=== PATIENT | male | born 1960 | race Caucasian/White ===

== ENCOUNTER 2020-04-10 21:59 | Inpatient (IN) | payer MEDICARE ==
[2020-04-10] MEDS ORDERED: ASPIRIN 325 MG TAB PO ONE (22:31)
--- NOTE | 2020-04-10 23:16 | XRay Report ---
CHEST 2 VIEWS INDICATION: Chest Pain. COMPARISON: None FINDINGS: SUPPORT DEVICES: Left-sided vascular catheter with tip in the SVC. HEART: Within normal limits. LUNGS/PLEURA: No acute air space or interstitial disease. No pneumothorax. ADDITIONAL FINDINGS: None. IMPRESSION: 1. No acute findings. Signer Name: Darshan Lee MD Signed: 04/10/2020 11:12 PM Workstation Name: [id number]
[2020-04-10 23:32] LABS: Calcium 8.8 mg/dL (8.4-10.2)
[2020-04-10 23:55] LABS: Hemoglobin 9.3 gm/dl (11.8-15.2); Mean Corpuscular HGB Conc 33 % (32-34); Mean Corpuscular Volume 91 fl (84-94); Red Blood Count 3.08 M/mm3 (3.65-5.03); Red Cell Distribution Width 19.2 % (13.2-15.2)
[2020-04-10 23:59] LABS: Platelet Count 101 K/mm3 (140-440)
[2020-04-11 04:25] LABS: Chol/HDL Ratio 5.39 %
[2020-04-11] MEDS ORDERED: ALBUTEROL 2.5 MG/3 ML NEBU IH ONE ×2 (05:16→08:32)
[2020-04-11] MEDS ORDERED: INSULIN REGULAR, HUMAN 100 UNIT/ML 3ML VIAL IV ONE (05:16)
[2020-04-11] MEDS ORDERED: SODIUM BICARB 8.4% 50 MEQ/50 ML SYRINGE IV ONE ×2 (05:16→07:42)
[2020-04-11] MEDS ORDERED: DEXTROSE 50% IN WATER (25GM) 50 ML SYRINGE IV ONE (05:16)
[2020-04-11] MEDS ORDERED: SODIUM POLYSTYRENE 15 GM/60 ML ORAL LIQD PO ONE (05:16)
[2020-04-11] MEDS ORDERED: CALCIUM GLUCONATE 1,000 MG in SODIUM CHLORIDE 0.9% 100 ML IV ONE (05:16)
--- NOTE | 2020-04-11 05:17 | Event Note ---
Date: 04/11/20 The patient was evaluated in the emergency department for symptoms described in the history of present illness. He/she was evaluated in the context of the global COVID-19 pandemic, which necessitated consideration that the patient might be at risk for infection with the virus that causes COVID-19. Institutional protocols and algorithms that pertain to the evaluation of patients at risk for COVID-19 are in a state of rapid change based on information released by regulatory bodies including the CDC and federal and state organizations. These policies and algorithms were followed during the patient's care in the emergency department. Please note that these policies, procedures and recommendations changed on a rapid basis. Medical screening examination: 60-year-old gentleman, with a history of end- stage renal disease on hemodialysis, who recently came here from [facility]. 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 He believes that he received dialysis yesterday, at [facility]. He presents to the ER with a complaint of syncope, chest pain, and left side pain. He has a nonfocal motor exam, is breathing spontaneously, and protecting his airway. Obtain appropriate laboratory studies, x-ray of the chest, EKG, noncontrast CT scan of the brain, and reassess. Vital Signs 04/10/20 22:14 Temperature 97.4 F L Pulse Rate 76 Respiratory 18 Rate Blood Pressure 119/53 O2 Sat by Pulse 100 Oximetry Lab Results 04/10/20 04/10/20 04/11/20 Range/Units 22:48 22:48 01:44 WBC 9.0 (4.5-11.0) K/mm3 RBC 3.08 L (3.65-5.03) M/mm3 Hgb 9.3 L (11.8-15.2) gm/dl Hct 28.0 L (35.5-45.6) % MCV 91 (84-94) fl MCH 30 (28-32) pg MCHC 33 (32-34) % RDW 19.2 H (13.2-15.2) % Plt Count 101 L (140-440) K/mm3 Lymph % (Auto) Thermal Cutting Machine Operator Lymph # (Auto) Thermal Cutting Machine Operator Sodium 135 L (137-145) mmol/L Potassium 5.6 H (3.6-5.0) mmol/L Chloride 96.9 L (98-107) mmol/L Carbon Dioxide 24 (22-30) mmol/L Anion Gap 20 mmol/L BUN 49 H (9-20) mg/dL Creatinine 7.3 H (0.8-1.3) mg/dL Estimated GFR 8 ml/min BUN/Creatinine Ratio 7 % Glucose 91 (75-100) mg/dL Calcium 8.8 (8.4-10.2) mg/dL Troponin T 0.152 H* 0.127 H* (0.00-0.029) ng/mL Triglycerides 260 H (2-149) mg/dL Cholesterol 151 (50-199) mg/dL LDL Cholesterol Direct 90 (50-130) mg/dL HDL Cholesterol 28 L (40-59) mg/dL Cholesterol/HDL Ratio 5.39 %
[2020-04-11 06:10] LABS: Total Cells Counted 100
[2020-04-11 06:11] LABS: Anisocytosis 1+
[2020-04-11 06:12] LABS: Macrocytosis Few; Ovalocytes Few; Platelet Estimate Consistent w Auto
--- NOTE | 2020-04-11 06:23 | Cat Scan Report ---
CT head without contrast INDICATION : Syncope, closed head injury. TECHNIQUE: Axial imaging performed from the skull apex through the skull base without the use of con trast. All CT scans at this location are performed using CT dose reduction for ALARA by means of aut omated exposure control. COMPARISON: None FINDINGS: Parenchyma: No acute intracranial hemorrhage or parenchymal abnormality. Ventricles: Ventricles are normal in size and appear symmetric. Soft tissues: Soft tissues including the orbits appear normal. Bones: No acute osseous abnormality. Sinuses: Sinuses and mastoid air cells are clear. IMPRESSION: No acute abnormality. Signer Name: Darshan Lee MD Signed: 04/11/2020 6:18 AM Workstation Name: [id number]
[2020-04-11] MEDS ORDERED: INSULIN REGULAR, HUMAN 100 UNITS/1 ML ONE (06:30)
[2020-04-11] MEDS ORDERED: fentaNYL 100 MCG/2 ML INJ IV ONE (06:36)
[2020-04-11] MEDS ORDERED: ONDANSETRON 4 MG/2 ML INJ IV ONE (06:36)
--- NOTE | 2020-04-11 06:41 | Emergency Department Report ---
HPI - General Chief Complaint: Chest Pain PUI?: No Time Seen by Provider: 04/11/20 06:24 - [facility] HPI: Room 9 The patient is a 60-year-old male present with a chief complaint of chest pain and suicidal ideation. The patient states for the past 3 days he has had a constant substernal chest pain associated with shortness of breath nausea and diaphoresis. Patient denies vomiting. Patient states last night after standing up he lost consciousness and now has pain in his left hip since his fall. Patient states his last stress test occurred approximate 3 months ago and was within normal limits. Patient states he is never had a cardiac catheterization. Patient has history of end-stage renal disease and states he was last dialyzed yesterday. Patient also states he has felt suicidal for 1 month and he has plan to hang himself. Patient states last night he attempted to hang himself by tying a shirt around his neck but it did not hold him ED Past Medical Hx - Past Medical History Previous Medical History?: Yes Hx Hypertension: Yes Hx Congestive Heart Failure: Yes Hx Diabetes: Yes Hx GERD: Yes Hx Renal Disease: Yes (CKD Stage IV: Dialysis MWF; needs transplant) Hx Arthritis: Yes (adalberto in BL knees) Hx Psychiatric Treatment: Yes (depression/anxiety outpt txt) Additional medical history: Chronic pain: adalberto in BL knees - Surgical History Past Surgical History?: Yes Additional Surgical History: Permacath left chest. Testicular sx: - Family History Family history: no significant - Social History Smoking Status: Current Some Day Smoker Substance Use Type: Marijuana - Medications Home Medications: Home Medications Medication Instructions Recorded Confirmed Last Taken Type ALPRAZolam [Xanax TAB] 1 mg PO BID PRN 04/11/20 04/11/20 Unknown History Risperdal 1 mg PO BID 04/11/20 04/11/20 Unknown History carvediloL 10 mg PO BID 04/11/20 04/11/20 Unknown History ED Review of Systems ROS: Stated complaint: CHEST PAINS Other details as noted in HPI Constitutional: diaphoresis Eyes: denies: eye pain Respiratory: shortness of breath Cardiovascular: chest pain Endocrine: no symptoms reported Gastrointestinal: nausea. denies: vomiting Genitourinary: denies: testicular pain Musculoskeletal: denies: back pain Neurological: other (Syncope). denies: headache Psychiatric: suicidal thoughts Physical Exam - Physical Exam Vital Signs: Vital Signs 04/10/20 04/11/20 04/11/20 22:14 05:09 05:31 Temperature 97.4 F L Pulse Rate 76 69 67 Respiratory 18 16 15 Rate Blood Pressure 119/53 123/72 O2 Sat by Pulse 100 99 99 Oximetry 04/11/20 05:41 Temperature Pulse Rate 70 Respiratory 9 L Rate Blood Pressure 131/73 O2 Sat by Pulse 98 Oximetry Physical Exam: GENERAL: The patient is well-developed well-nourished male lying on stretcher not appearing to be in acute distress. [] HEENT: Normocephalic. Atraumatic. Extraocular motions are intact. Patient has moist mucous membranes. NECK: Supple. Trachea midline CHEST/LUNGS: Clear to auscultation. There is no respiratory distress noted. HEART/CARDIOVASCULAR: Regular. There is no tachycardia. There is no gallop rub or murmur. ABDOMEN: Abdomen is soft, nontender. Patient has normal bowel sounds. There is no abdominal distention. SKIN: There is no rash. There is no edema. There is no diaphoresis. NEURO: The patient is awake, alert, and oriented. The patient is cooperative. The patient has normal speech MUSCULOSKELETAL:There is no evidence of acute injury. ED Course Vital Signs 04/10/20 04/11/20 04/11/20 22:14 05:09 05:31 Temperature 97.4 F L Pulse Rate 76 69 67 Respiratory 18 16 15 Rate Blood Pressure 119/53 123/72 O2 Sat by Pulse 100 99 99 Oximetry 04/11/20 05:41 Temperature Pulse Rate 70 Respiratory 9 L Rate Blood Pressure 131/73 O2 Sat by Pulse 98 Oximetry ED Medical Decision Making - Lab Data Result diagrams: 04/10/20 22:48 04/10/20 22:48 Laboratory Tests 04/10/20 04/10/20 04/11/20 22:48 22:48 01:44 WBC 9.0 RBC 3.08 L Hgb 9.3 L Hct 28.0 L MCV 91 MCH 30 MCHC 33 RDW 19.2 H Plt Count 101 L Lymph % (Auto) Last Trimmer Lymph # (Auto) Last Trimmer Add Manual Diff Complete Total Counted 100 Seg Neuts % (Manual) 50.0 Lymphocytes % (Manual) 44.0 H Monocytes % (Manual) 4.0 Metamyelocytes % 2.0 Nucleated RBC % Not Reportable Seg Neutrophils # Man 4.5 Band Neutrophils # 0.0 Lymphocytes # (Manual) 4.0 Abs React Lymphs (Man) 0.0 Monocytes # (Manual) 0.4 Eosinophils # (Manual) 0.0 Basophils # (Manual) 0.0 Metamyelocytes # 0.2 Myelocytes # 0.0 Promyelocytes # 0.0 Blast Cells # 0.0 WBC Morphology Not Reportable Hypersegmented Neuts Not Reportable Hyposegmented Neuts Not Reportable Hypogranular Neuts Not Reportable Smudge Cells Not Reportable Toxic Granulation Not Reportable Toxic Vacuolation Not Reportable Dohle Bodies Not Reportable Pelger-Huet Anomaly Not Reportable Alex Rods Not Reportable Platelet Estimate Consistent w auto Clumped Platelets Not Reportable Plt Clumps, EDTA Not Reportable Large Platelets Not Reportable Giant Platelets Not Reportable Platelet Satelliting Not Reportable Plt Morphology Comment Not Reportable RBC Morphology Not Reportable Dimorphic RBCs Not Reportable Polychromasia Not Reportable Hypochromasia Not Reportable Poikilocytosis Not Reportable Anisocytosis 1+ Microcytosis Few Macrocytosis Few Spherocytes Not Reportable Pappenheimer Bodies Not Reportable Sickle Cells Not Reportable Target Cells Not Reportable Tear Drop Cells Not Reportable Ovalocytes Few Helmet Cells Not Reportable Meredith-Hemphill Bodies Not Reportable Raymond Rings Not Reportable Rudi Cells Not Reportable Bite Cells Not Reportable Crenated Cell Not Reportable Elliptocytes Not Reportable Acanthocytes (Spur) Not Reportable Rouleaux Not Reportable Hemoglobin C Crystals Not Reportable Schistocytes Not Reportable Malaria parasites Not Reportable Jorge Bodies Not Reportable Hem Pathologist Commnt No D-Dimer Sodium 135 L Potassium 5.6 H Chloride 96.9 L Carbon Dioxide 24 Anion Gap 20 BUN 49 H Creatinine 7.3 H Estimated GFR 8 BUN/Creatinine Ratio 7 Glucose 91 Calcium 8.8 Troponin T 0.152 H* 0.127 H* Triglycerides 260 H Cholesterol 151 LDL Cholesterol Direct 90 HDL Cholesterol 28 L Cholesterol/HDL Ratio 5.39 04/11/20 04/11/20 04:48 07:18 WBC RBC Hgb Hct MCV MCH MCHC RDW Plt Count Lymph % (Auto) Lymph # (Auto) Add Manual Diff Total Counted Seg Neuts % (Manual) Lymphocytes % (Manual) Monocytes % (Manual) Metamyelocytes % Nucleated RBC % Seg Neutrophils # Man Band Neutrophils # Lymphocytes # (Manual) Abs React Lymphs (Man) Monocytes # (Manual) Eosinophils # (Manual) Basophils # (Manual) Metamyelocytes # Myelocytes # Promyelocytes # Blast Cells # WBC Morphology Hypersegmented Neuts Hyposegmented Neuts Hypogranular Neuts Smudge Cells Toxic Granulation Toxic Vacuolation Dohle Bodies Pelger-Huet Anomaly Alex Rods Platelet Estimate Clumped Platelets Plt Clumps, EDTA Large Platelets Giant Platelets Platelet Satelliting Plt Morphology Comment RBC Morphology Dimorphic RBCs Polychromasia Hypochromasia Poikilocytosis Anisocytosis Microcytosis Macrocytosis Spherocytes Pappenheimer Bodies Sickle Cells Target Cells Tear Drop Cells Ovalocytes Helmet Cells Meredith-Hemphill Bodies Raymond Rings [place] Cells Bite Cells Crenated Cell Elliptocytes Acanthocytes (Spur) Rouleaux Hemoglobin C Crystals Schistocytes Malaria parasites Jorge Bodies Hem Pathologist Commnt D-Dimer 1489.25 H Sodium Potassium Chloride Carbon Dioxide Anion Gap BUN Creatinine Estimated GFR BUN/Creatinine Ratio Glucose Calcium Troponin T 0.118 H* Triglycerides Cholesterol LDL Cholesterol Direct HDL Cholesterol Cholesterol/HDL Ratio - EKG Data -: EKG Interpreted by Me EKG shows normal: sinus rhythm Rate: normal - EKG Data When compared to previous EKG there are: previous EKG unavailable Interpretation: other (Slightly peaked T waves) - Radiology Data Radiology results: report reviewed (Chest x-ray, CT head, left hip x-ray, VQ scan), image reviewed (Chest x-ray, CT head, left hip x-ray, VQ scan) interpreted by me: Chest x-ray-no focal infiltrates, no pneumothorax, no foreign body seen Left hip x-ray-no acute fracture, no dislocation, no foreign body seen Findings [facility] [address] [place] [address] XRay Report Signed Patient: OBED YUSUF MR#: [id number] : 1960 Acct:[id number] Age/Sex: 60 / M ADM Date: 04/10/20 Loc: ED Attending Dr: Ordering Physician: ED MD ANTON Date of Service: 04/10/20 Procedure(s): XR chest routine 2V Accession Number(s): [id number] cc: ED DOCMD Fluoro Time In Minutes: CHEST 2 VIEWS INDICATION: Chest Pain. COMPARISON: None FINDINGS: SUPPORT DEVICES: Left-sided vascular catheter with tip in the SVC. HEART: Within normal limits. LUNGS/PLEURA: No acute air space or interstitial disease. No pneumothorax. ADDITIONAL FINDINGS: None. IMPRESSION: 1. No acute findings. Signer Name: Darshan Lee MD Signed: 04/10/2020 11:12 PM Workstation Name: [id number] Transcribed By: BERNARDINO Dictated By: Darshan Lee MD Electronically Authenticated By: Darshan Lee MD Signed Date/Time: 04/10/202311 DD/ 10 TD/TT: Findings [address] [address] Cat Scan Report Signed Patient: OBED YUSUF MR#: [id number] : 1960 Acct:[id number] Age/Sex: 60 / M ADM Date: 04/10/20 Loc: ED Attending Dr: Ordering Physician: LOUIS WEBSTER MD Date of Service: 04/11/20 Procedure(s): CT head/brain wo con Accession Number(s): [id number] cc: LOUIS WEBSTER MD CT head without contrast INDICATION : Syncope, closed head injury. TECHNIQUE: Axial imaging performed from the skull apex through the skull base without the use of contrast. All CT scans at this location are performed using CT dose reduction for ALARA by means of automated exposure control. COMPARISON: None FINDINGS: Parenchyma: No acute intracranial hemorrhage or parenchymal abnormality. Ventricles: Ventricles are normal in size and appear symmetric. Soft tissues: Soft tissues including the orbits appear normal. Bones: No acute osseous abnormality. Sinuses: Sinuses and mastoid air cells are clear. IMPRESSION: No acute abnormality. Signer Name: Darshan Lee MD Signed: 04/11/2020 6:18 AM Workstation Name: [id number] Transcribed By: BERNARDINO Dictated By: Darshan Lee MD Electronically Authenticated By: Darshan Lee MD Signed Date/Time: 04/11/20617 DD/ 7 TD/TT: [address] [address] XRay Report Signed Patient: OBED YUSUF MR#: [id number] : 1960 Acct:[id number] Age/Sex: 60 / M ADM Date: 04/10/20 Loc: ED Attending Dr: Ordering Physician: ACE GARCIA MD Date of Service: 04/11/20 Procedure(s): XR hip 2-3V LT Accession Number(s): [id number] cc: ACE GARCIA MD Fluoro Time In Minutes: LEFT HIP 2 VIEWS 0839 INDICATION: Pain after fall COMPARISON: None available. FINDINGS: No fractures or dislocations are seen. Signer Name: Fausto Davison MD Signed: 04/11/2020 8:55 AM Workstation Name: [id number] Transcribed By: GJ Dictated By: Fausto Davison MD Electronically Authenticated By: Fausto Davison MD Signed Date/Time: 04/11/20854 DD/ 3 TD/TT: VQ scan (read by radiologist)-low probability - Differential Diagnosis ACS, pericarditis, GERD, PE Critical care attestation.: If time is entered above; I have spent that time in minutes in the direct care of this critically ill patient, excluding procedure time. ED Disposition Clinical Impression: Chest pain, Syncope, Hyperkalemia, ESRD (end stage renal disease), Suicidal ideation Disposition: OP ADMIT IP TO THIS HOSP Is pt being admited?: Yes Does the pt Need Aspirin: Yes Condition: Fair Instructions: Chest Pain (ED), Syncope (ED) Referrals: PRIMARY CARE, [Primary Care Provider] - 3-5 Days Time of Disposition: 11:23 (Hospitalist paged)
--- NOTE | 2020-04-11 08:59 | XRay Report ---
LEFT HIP 2 VIEWS 0839 INDICATION: Pain after fall COMPARISON: None available. FINDINGS: No fractures or dislocations are seen. Signer Name: Fausto Davison MD Signed: 04/11/2020 8:55 AM Workstation Name: [id number]
--- NOTE | 2020-04-11 09:21 | XRay Report ---
CHEST 1 VIEW INDICATION: chest pain COMPARISON: 04/10/2020 FINDINGS: SUPPORT DEVICES: Central venous line has tip in superior vena cava HEART / MEDIASTINUM: No significant abnormality. LUNGS / PLEURA: No significant pulmonary or pleural abnormality. No pneumothorax. ADDITIONAL FINDINGS: IMPRESSION: 1. No acute cardiopulmonary disease Signer Name: Bill Garcia MD Signed: 04/11/2020 9:16 AM Workstation Name: [id number]
--- NOTE | 2020-04-11 11:04 | Nuclear Medicine Report ---
NM PERFUSION ONLY LUNG SCAN INDICATION / CLINICAL INFORMATION: Chest pain and shortness of breath. TECHNIQUE: Dose / Agent / Route: The patient received 5.3 mCi technetium 99m-MAA intravenously. COMPARISON: Concurrent chest radiograph from 9:06 AM. FINDINGS: There is mild heterogeneity of perfusion bilaterally. No segmental or larger perfusion abnormality is seen. The accompanying chest radiograph is clear. IMPRESSION: Low probability for acute PTE. Signer Name: Lyle Dias MD Signed: 04/11/2020 11:00 AM Workstation Name: [id number]
--- NOTE | 2020-04-11 11:21 | Consultation ---
History of Present Illness - Reason for Consult Consult date: 04/11/20 Reason for consult: SI - History of Present Psychiatric Illness Lucien Dailey is a 60y/o male patient who presented to the ER with chest pain and suicidal thoughts. The patient has a history of depression and anxiety. During my interview with the patient today, he is lying down. He is a/o x 3. He is calm and cooperative. The patient verbalizes suicidal thoughts with a plan to hang himself or slit his wrist. He verbalizes "feeling depressed" but could not say why he was depressed. He replied "I don't know." He denies hallucinations of any kind. He denies any illicit drug use, alcohol or nicotine. He also denies seeing a psychiatrist recently. The patient says he was once on paxil but "I gained a lot of weight." PAST PSYCHIATRIC HISTORY Diagnoses: Depression and anxiety Suicide attempts or Self-harm behavior: "yes, 5 years ago Prior psychiatric hospitalizations: Yes Substance Abuse history: Denies Previous psychiatric medications tried: States been off for years Outpatient treatment: Denies PAST MEDICAL HISTORY: None reported Family Psychiatric History: None reported or documented SOCIAL HISTORY Marital Status: Single Living Arrangements: Lives with mmother Employment Status: Disabled Access to guns/weapons: None reported Education: high school History of Abuse: None reported Legal History: denies REVIEW OF SYSTEMS Constitutional: Negative for weight loss ENT: Negative for stridor Respiratory: Negative for cough or hemoptysis All other systems reviewed and are negative MENTAL STATUS EXAMINATION General Appearance and Behavior: Age appropriate, good hygiene, wearing appropriate clothes, good eye contact Cooperation: Participating/engaged, guarded Psychomotor Behavior: Psychomotor normal Mood: "depressed" Affect and affective range: congruent with stated mood Thought Process: goal directed Thought Content: none Speech: Normal rate, volume and rhythm Suicidal Ideation: Denies Homicidal Ideation: Denies Hallucinations: Denies Delusions: None elicited Impulse Control: Impaired Insight and Judgment: Limited insight and judgment Memory: Limited Attention: Limited Orientation: Alert, oriented Assessment and Plan (1)Major Depressive Disorder (2)Suicidal Ideation TREATMENT 1013 Start Trazodone 50mg po daily Start Depakote DR 125mg po BID Sitter: Defer to primary Medical: Per primary Disposition: Recommend acute inpatient treatment Will follow. Thank you for this consult. Case staffed with Dr. Jauregui Medications and Allergies Allergies Allergy/AdvReac Type Severity Reaction Status Date / Time buspirone [From BuSpar] Allergy Itching Verified 04/10/20 22:24 Penicillins Allergy Headache Verified 04/10/20 22:14 Home Medications Medication Instructions Recorded Confirmed Last Taken Type ALPRAZolam [Xanax TAB] 1 mg PO BID PRN 04/11/20 04/11/20 Unknown History Risperdal 1 mg PO BID 04/11/20 04/11/20 Unknown History carvediloL 10 mg PO BID 04/11/20 04/11/20 Unknown History Mental Status Exam - Vital signs Last Vital Signs Temp 98.0 F 04/11/20 08:02 Pulse 69 04/11/20 10:35 Resp 18 04/11/20 10:35 BP 126/62 04/11/20 10:35 Pulse Ox 100 04/11/20 10:35 Results Result Diagrams: 04/10/20 22:48 04/10/20 22:48 Abnormal lab results 04/10/20 04/10/20 04/11/20 Range/Units 22:48 22:48 01:44 RBC 3.08 L (3.65-5.03) M/mm3 Hgb 9.3 L (11.8-15.2) gm/dl Hct 28.0 L (35.5-45.6) % RDW 19.2 H (13.2-15.2) % Plt Count 101 L (140-440) K/mm3 Lymphocytes % (Manual) 44.0 H (13.4-35.0) % D-Dimer (0-234) ng/mlDDU Sodium 135 L (137-145) mmol/L Potassium 5.6 H (3.6-5.0) mmol/L Chloride 96.9 L (98-107) mmol/L BUN 49 H (9-20) mg/dL Creatinine 7.3 H (0.8-1.3) mg/dL Troponin T 0.152 H* 0.127 H* (0.00-0.029) ng/mL Triglycerides 260 H (2-149) mg/dL HDL Cholesterol 28 L (40-59) mg/dL 04/11/20 04/11/20 Range/Units 04:48 07:18 RBC (3.65-5.03) M/mm3 Hgb (11.8-15.2) gm/dl Hct (35.5-45.6) % RDW (13.2-15.2) % Plt Count (140-440) K/mm3 Lymphocytes % (Manual) (13.4-35.0) % D-Dimer 1489.25 H (0-234) ng/mlDDU Sodium (137-145) mmol/L Potassium (3.6-5.0) mmol/L Chloride (98-107) mmol/L BUN (9-20) mg/dL Creatinine (0.8-1.3) mg/dL Troponin T 0.118 H* (0.00-0.029) ng/mL Triglycerides (2-149) mg/dL HDL Cholesterol (40-59) mg/dL All other labs normal.
--- NOTE | 2020-04-11 12:13 | History and Physical Report ---
History of Present Illness Chief complaint: I feel weak, I feel tired, I cannot breathe, and I want to kill myself History of present illness: 60 YO Male with HTN, CHF, GERD, DM, ESRD on HD(M,W,F), OA, Obesity Hypoventi lation Syndrome presents to ED for evaluation. Patient states that he has experienced generalized weakness for the past 3 weeks with worsening symptoms over the past 3 days. Patient acknowledges shortness of breath, decreased exercise tolerance, orthopnea, paroxysmal nocturnal dyspnea, dyspnea on exertion, as well as dyspnea at rest. Patient also acknowledges chest discomfort. Patient also acknowledges feeling helpless, and hopeless and feels as though he wants to take his own life. Patient states that he has plan to hang himself over the past 1 month. Patient reports attempt to hang himself by tying a T-shirt around his neck but this would not support his weight. Patient transported to [facility] via private vehicle for further care and evaluation. Patient seen and evaluated in the emergency department. All lab and imaging studies reviewed. Patient found to have clinical symptoms consistent with with CHF decompensation, end-stage renal disease. Patient admitted to telemetry and in itiated on CHF protocol. Cardiology team consulted in ED. Nephrology team consulted in ED. Dialysis as per renal team. Patient denies fever, chills, palpitations, productive cough, skin rash, recent ill contacts, prolonged travel/immobility, unilateral leg swelling, calf pain, individual/family history of DVT/PE/bleeding/blood clotting disorders. No prior admission for review. No medication listed at time of admission for reconciliation. Past History Past Medical History: arthritis, diabetes, GERD, heart failure, hypertension Past Surgical History: Other (Permacath left chest) Social history: single. denies: smoking, alcohol abuse, prescription drug abuse Family history: diabetes, hypertension Medications and Allergies Allergies Allergy/AdvReac Type Severity Reaction Status Date / Time buspirone [From BuSpar] Allergy Itching Verified 04/10/20 22:24 Penicillins Allergy Headache Verified 04/10/20 22:14 Home Medications Medication Instructions Recorded Confirmed Last Taken Type ALPRAZolam [Xanax TAB] 1 mg PO BID PRN 04/11/20 04/11/20 Unknown History Risperdal 1 mg PO BID 04/11/20 04/11/20 Unknown History carvediloL 10 mg PO BID 04/11/20 04/11/20 Unknown History Active Meds: Active Medications Divalproex Sodium (Divalproex Dr 125 Mg Tab) 125 mg PO BID [facility] Trazodone HCl (Trazodone 50 Mg Tab) 50 mg PO QHS [facility] Review of Systems Constitutional: no weight loss, no weight gain, no fever, no chills Ears, nose, mouth and throat: no ear pain, no ear discharge, no tinnitis, no decreased hearing, no nose pain Cardiovascular: orthopnea, shortness of breath, dyspnea on exertion, paroxysmal nocturnal dyspnea, decreased exercise tolerance, no rapid/irregular heart beat Respiratory: no cough, no cough with sputum, no excessive sputum, no hemoptysis Gastrointestinal: no abdominal pain, no nausea, no vomiting, no diarrhea Genitourinary Male: no hematuria, no flank pain, no discharge, no urinary frequency, no urinary hesitancy Rectal: no pain, no incontinence, no bleeding Musculoskeletal: no neck pain, no shooting arm pain, no arm numbness/tingling, no shooting leg pain Integumentary: no rash, no pruritis, no redness, no sores, no wounds Neurological: no transient paralysis, no weakness, no parathesias, no numbness, no tingling Psychiatric: change in appetite, suicidal ideation, depression, hopelessness, difficulties concentrating, sadness/tearfullness, no anxiety, no change in sleep habits Endocrine: no cold intolerance, no heat intolerance, no polyphagia, no polydipsia, no polyuria Hematologic/Lymphatic: no easy bruising, no easy bleeding Allergic/Immunologic: no urticaria, no wheezing Exam - Constitutional Vitals: Temp Pulse Resp BP Pulse Ox 98.0 F 69 18 126/62 100 04/11/20 08:02 04/11/20 10:35 04/11/20 10:35 04/11/20 10:35 04/11/20 10:35 General appearance: Present: mild distress, obese - EENT Eyes: Present: PERRL ENT: hearing intact, clear oral mucosa - Neck Neck: Present: supple, normal ROM - Respiratory Respiratory effort: normal Respiratory: bilateral: CTA - Cardiovascular Heart Sounds: Present: S1 & S2. Absent: rub, click - Extremities Extremities: pulses symmetrical Extremity abnormal: edema Peripheral Pulses: within normal limits - Abdominal General gastrointestinal: Present: soft, non-tender, non-distended, normal bowel sounds Male genitourinary: Present: normal - Integumentary Integumentary: Present: clear, warm, dry - Musculoskeletal Musculoskeletal: gait normal, strength equal bilaterally - Psychiatric Psychiatric: intact judgment & insight, depressed - Neurologic Neurologic: CNII-XII intact, moves all extremities HEART Score - HEART Score Troponin: Troponin T 0.118 ng/mL (0.00-0.029) H* 04/11/20 04:48 Results - Labs CBC & Chem 7: 04/10/20 22:48 04/10/20 22:48 Labs: Abnormal lab results 04/10/20 04/10/20 04/11/20 Range/Units 22:48 22:48 01:44 RBC 3.08 L (3.65-5.03) M/mm3 Hgb 9.3 L (11.8-15.2) gm/dl Hct 28.0 L (35.5-45.6) % RDW 19.2 H (13.2-15.2) % Plt Count 101 L (140-440) K/mm3 Lymphocytes % (Manual) 44.0 H (13.4-35.0) % D-Dimer (0-234) ng/mlDDU Sodium 135 L (137-145) mmol/L Potassium 5.6 H (3.6-5.0) mmol/L Chloride 96.9 L (98-107) mmol/L BUN 49 H (9-20) mg/dL Creatinine 7.3 H (0.8-1.3) mg/dL Troponin T 0.152 H* 0.127 H* (0.00-0.029) ng/mL Triglycerides 260 H (2-149) mg/dL HDL Cholesterol 28 L (40-59) mg/dL 04/11/20 04/11/20 Range/Units 04:48 07:18 RBC (3.65-5.03) M/mm3 Hgb (11.8-15.2) gm/dl Hct (35.5-45.6) % RDW (13.2-15.2) % Plt Count (140-440) K/mm3 Lymphocytes % (Manual) (13.4-35.0) % D-Dimer 1489.25 H (0-234) ng/mlDDU Sodium (137-145) mmol/L Potassium (3.6-5.0) mmol/L Chloride (98-107) mmol/L BUN (9-20) mg/dL Creatinine (0.8-1.3) mg/dL Troponin T 0.118 H* (0.00-0.029) ng/mL Triglycerides (2-149) mg/dL HDL Cholesterol (40-59) mg/dL Assessment and Plan - Patient Problems (1) CHF (congestive heart failure) Current Visit: Yes Status: Acute Qualifiers: Heart failure type: systolic Heart failure chronicity: acute Qualified Code(s): I50.21 - Acute systolic (congestive) heart failure Plan to address problem: Strict I's/O, monitor urine output every shift, daily weight, afterload reduction, monitor fluid balance, cardiology team consulted, echo cardiogram ordered and pending at time of admission (2) Obesity hypoventilation syndrome Current Visit: Yes Status: Acute Plan to address problem: Supplemental oxygen, pulse oximetry, noninvasive positive pressure ventilation as clinically indicated, outpatient pulmonary follow-up for sleep study. (3) Suicidal ideation Current Visit: Yes Status: Acute Plan to address problem: Mental health team consulted, supportive care, continue medical management. [address] (4) ESRD (end stage renal disease) Current Visit: Yes Status: Acute Plan to address problem: Nephrology team consulted in ED, dialysis as per renal team, strict I's/O, avoid nephrotoxic agents. (5) Diabetes Current Visit: Yes Status: Acute Plan to address problem: Sliding-scale insulin therapy, Accu-Chek, hypoglycemia protocol. (6) Hypertension Current Visit: Yes Status: Acute Qualifiers: Hypertension type: essential hypertension Qualified Code(s): I10 - Essential (primary) hypertension Plan to address problem: Monitor blood pressure every shift, continue medical management. (7) Gastroesophageal reflux disease Current Visit: Yes Status: Acute Qualifiers: Esophagitis presence: without esophagitis Qualified Code(s): K21.9 - Gastro-esophageal reflux disease without esophagitis Plan to address problem: PPI therapy, supportive care. (8) DVT prophylaxis Current Visit: Yes Status: Acute Plan to address problem: SCD to bilateral lower extremities while in bed, patient is ambulatory.
[2020-04-11] MEDS ORDERED: ALBUTEROL 2.5 MG/3 ML NEBU IH PRN (12:14)
[2020-04-11] MEDS ORDERED: NITROGLYCERIN 0.4 MG TAB SUBL SL PRN (12:14)
[2020-04-11] MEDS ORDERED: ACETAMINOPHEN 325 MG TAB PO PRN (12:14)
[2020-04-11] MEDS ORDERED: ONDANSETRON 4 MG/2 ML INJ IV PRN (12:14)
[2020-04-11] MEDS: DIVALPROEX DR 125 MG TAB PO SCH ×2 (13:26→21:27)
[2020-04-11] MEDS: ACETAMINOPHEN 325 MG TAB PO PRN ×2 (17:12→21:27)
--- NOTE | 2020-04-11 17:47 | Consultation ---
History of Present Illness - Reason for Consult Consult date: 04/11/20 end stage renal disease, hyperkalemia - History of Present Illness This is a 60-year-old man with end-stage renal disease on hemodialysis who presented with 3-day history of chest pain and suicidal ideation. He describes the pain as constant, nonradiating and substernal. He also notes loss of consciousness upon standing yesterday which resulted in hip pain due to subsequent fall. He is calm and cooperative during the visit. Patient states that he was last dialyzed yesterday and received a full session of dialysis. Lab work is notable for mild hyperkalemia. Nephrology was consulted for ESRD management. Medications and Allergies Allergies Allergy/AdvReac Type Severity Reaction Status Date / Time buspirone [From BuSpar] Allergy Itching Verified 04/10/20 22:24 Penicillins Allergy Headache Verified 04/10/20 22:14 Home Medications Medication Instructions Recorded Confirmed Last Taken Type ALPRAZolam [Xanax TAB] 1 mg PO BID PRN 04/11/20 04/11/20 Unknown History Risperdal 1 mg PO BID 04/11/20 04/11/20 Unknown History carvediloL 10 mg PO BID 04/11/20 04/11/20 Unknown History Active Meds: Active Medications Acetaminophen (Acetaminophen 325 Mg Tab) 650 mg PO Q4H PRN PRN Reason: Pain MILD(1-3)/Fever >100.5/PERERA Last Admin: 04/11/20 17:12 Dose: 650 mg Documented by: Albuterol (Albuterol 2.5 Mg/3 Ml Nebu) 2.5 mg IH Q4HRT PRN PRN Reason: Shortness Of Breath Last Admin: 04/11/20 17:13 Dose: 2.5 mg Documented by: Atorvastatin Calcium (Atorvastatin 40 Mg Tab) 40 mg PO QHS JUAN Divalproex Sodium (Divalproex Dr 125 Mg Tab) 125 mg PO BID JUAN Last Admin: 04/11/20 13:26 Dose: 125 mg Documented by: Miscellaneous Medication (Carvedilol) 10 mg PO BID [facility] Nitroglycerin (Nitroglycerin 0.4 Mg Tab Subl) 0.4 mg SL Q5M PRN PRN Reason: Chest Pain Ondansetron HCl (Ondansetron 4 Mg/2 Ml Inj) 4 mg IV Q8H PRN PRN Reason: Nausea And Vomiting Last Admin: 04/11/20 17:12 Dose: 4 mg Documented by: Sodium Chloride (Sodium Chloride 0.9% 10 Ml Flush Syringe) 10 ml IV BID [facility] Sodium Chloride (Sodium Chloride 0.9% 10 Ml Flush Syringe) 10 ml IV PRN PRN PRN Reason: LINE FLUSH Sodium Chloride (Sodium Chloride 0.9% 10 Ml Flush Syringe) 10 ml IV PRN PRN PRN Reason: LINE FLUSH Trazodone HCl (Trazodone 50 Mg Tab) 50 mg PO QHS [facility] Review of Systems Constitutional: weight gain, other Eyes: bilateral: other (No discharge or irritation) Ears, nose, mouth and throat: other (No nasal discharge or congestion) Cardiovascular: chest pain, other (No edema) Respiratory: other (No cough or shortness of breath) Gastrointestinal: other (No hematemesis or hematochezia) Musculoskeletal: other (No numbness or tingling) Integumentary: other (No skin rash or pruritus) Neurological: syncope, other (No seizures) Psychiatric: suicidal ideation, depression Endocrine: weight change Hematologic/Lymphatic: other (No easy bleeding) Allergic/Immunologic: other (No wheezing) Exam - Vital Signs Vital signs: Vital Signs Temp Pulse Resp BP Pulse Ox 97.4 F L 76 18 119/53 100 04/10/20 22:14 04/10/20 22:14 04/10/20 22:14 04/10/20 22:14 04/10/20 22:14 - Physical Exam Narrative exam: Constitutional: no acute distress Head: NC/AT Neck: supple Lungs: clear to auscultation CV: RRR, no M/R/G Abdomen: soft, non-tender, bowel sounds present Back: nontender Extremities: no edema, pulses WNL Skin: intact Neuro: no focal deficits, alert and oriented x4 Results - Lab Results 04/10/20 22:48 04/10/20 22:48 Most recent lab results Calcium 8.8 mg/dL (8.4-10.2) 04/10/20 22:48 Assessment and Plan Assessment * End-stage renal disease on hemodialysis * Anemia of end-stage renal disease * Hyperkalemia, mild * Chest pain * Depression/suicidal ideation Recommendations * Kayexalate x1 * No immediate indication for dialysis, plan for dialysis tomorrow once acute AR has been ruled out * Hold Epogen while acute AR has been ruled out * Cardiology consultation pending * Psych note reviewed * Renally dose medications * Avoid nephrotoxins
[2020-04-11 18:08] LABS: Amphetamine Screen,Urine Negative; Benzodiazepines Screen,Urine Negative; Cannabinoid Screen,Urine Negative; Cocaine Screen,Urine Negative; Methadone Screen,Urine Negative; Opiate Screen,Urine Negative
[2020-04-11] MEDS: traZODone 50 MG TAB PO SCH (21:27)
[2020-04-11] MEDS: carvediloL 12.5 MG TAB PO SCH (21:27)
[2020-04-11] MEDS ORDERED: CARVEDILOL 10 MG PO SCH (22:00)
[2020-04-12] MEDS ORDERED: HYDROmorphone 1 MG/1 ML INJ IV ONE (02:55)
[2020-04-12] MEDS: DIVALPROEX DR 125 MG TAB PO SCH ×3 (10:11→21:02)
[2020-04-12] MEDS: carvediloL 12.5 MG TAB PO SCH ×3 (10:11→21:01)
[2020-04-12] MEDS ORDERED: SODIUM CHLORIDE 0.9% 100 ML IV PRN (10:29)
--- NOTE | 2020-04-12 10:47 | Progress Note ---
Subjective - Reason for Consult Consult date: 04/12/20 Reason for consult: MHE Requesting physician: BARBIE CRAFT - Chief Complaint Chief complaint: Psych Progress In my interview with the patient this morning, the patient reports mood as depressed, safe and hopeless, says he does not like his life as a dialysis patient". Patiente endorses current SI. REVIEW OF SYSTEMS Constitutional: Negative for weight loss ENT: Negative for stridor Respiratory: Negative for cough or hemoptysis All other systems reviewed and are negative MENTAL STATUS EXAMINATION General Appearance and Behavior: Age appropriate, good hygiene, wearing appropriate clothes, good eye contact Cooperation: Participating/engaged, guarded Psychomotor Behavior: Psychomotor normal Mood: "depressed" Affect and affective range: congruent with stated mood Thought Process: goal directed Thought Content: none Speech: Normal rate, volume and rhythm Suicidal Ideation: Yes Homicidal Ideation: Denies Hallucinations: Denies Delusions: None elicited Impulse Control: Impaired Insight and Judgment: Limited insight and judgment Memory: Limited Attention: Limited Orientation: Alert, oriented Assessment and Plan (1)Major Depressive Disorder (2)Suicidal Ideation Treatment Plan MEDICATIONS: Risks, benefits and alternatives of medications discussed with the patient, q uestions answered and consent obtained from patient. PSYCHOTHERAPY: Supportive psychotherapy provided MEDICAL: Per primary team DELIRIUM PRECAUTIONS: Please re-orient patient frequently, keep lights on during the day, and minimize benzodiazepines and opiates as these medications could worsen patient's confusion. 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 Please contact with any questions and/or concerns. Mental Status Exam - Vital signs Last Vital Signs Temp 98.0 F 04/12/20 07:31 Pulse 71 04/12/20 07:31 Resp 18 04/12/20 07:31 BP 145/70 04/12/20 07:31 Pulse Ox 95 04/12/20 07:31
--- NOTE | 2020-04-12 11:43 | Consultation ---
History of Present Illness Consult date: 04/12/20 Requesting physician: BARBIE CRAFT Consult reason: chest pain History of present illness: 60-year-old male end-stage renal disease on hemodialysis for last 1 year hypertension is admitted to the hospital for chest pain. Patient states happened several weeks ago in which it was constant and worse with inspiration. Patient denies any fever chills or syncope. Patient states can normally walk around for 10 to 15 minutes without issue. Patient is also having mental illness and suicidal ideation is on a 1013. Patient is currently chest pain- free. Denies any fever chills. Denies any previous cardiac workup Past History Past Medical History: arthritis, diabetes, ESRD, GERD, hypertension Past Surgical History: Other (Permacath left chest) Social history: single, other (Smokes marijuana). denies: smoking, alcohol abuse, prescription drug abuse Family history: diabetes, hypertension Medications and Allergies Allergies Allergy/AdvReac Type Severity Reaction Status Date / Time buspirone [From BuSpar] Allergy Itching Verified 04/10/20 22:24 Penicillins Allergy Headache Verified 04/10/20 22:14 Home Medications Medication Instructions Recorded Confirmed Last Taken Type ALPRAZolam [Xanax TAB] 1 mg PO BID PRN 04/11/20 04/11/20 Unknown History Risperdal 1 mg PO BID 04/11/20 04/11/20 Unknown History carvediloL 10 mg PO BID 04/11/20 04/11/20 Unknown History Active Meds: Active Medications Acetaminophen (Acetaminophen 325 Mg Tab) 650 mg PO Q4H PRN PRN Reason: Pain MILD(1-3)/Fever >100.5/PERERA Last Admin: 04/11/20 21:27 Dose: 650 mg Documented by: Albuterol (Albuterol 2.5 Mg/3 Ml Nebu) 2.5 mg IH Q4HRT PRN PRN Reason: Shortness Of Breath Last Admin: 04/11/20 17:13 Dose: 2.5 mg Documented by: Atorvastatin Calcium (Atorvastatin 40 Mg Tab) 40 mg PO QHS REPLACED BY [facility] Last Admin: 04/11/20 21:27 Dose: 40 mg Documented by: Carvedilol (Carvedilol 12.5 Mg Tab) 12.5 mg PO BID [facility]PL[facility] Last Admin: 04/12/20 10:11 Dose: 12.5 mg Documented by: Divalproex Sodium (Divalproex Dr 125 Mg Tab) 125 mg PO BID [facility] Last Admin: 04/12/20 10:11 Dose: 125 mg Documented by: Fluoxetine HCl (Fluoxetine 20 Mg Cap) 20 mg PO QDAY REPLACED BY [facility] Sodium Chloride (Nacl 0.9%) 100 mls @ 999 mls/hr IV LORE PRN PRN Reason: Hypotension Nitroglycerin (Nitroglycerin 0.4 Mg Tab Subl) 0.4 mg SL Q5M PRN PRN Reason: Chest Pain Ondansetron HCl (Ondansetron 4 Mg/2 Ml Inj) 4 mg IV Q8H PRN PRN Reason: Nausea And Vomiting Last Admin: 04/11/20 17:12 Dose: 4 mg Documented by: Sodium Chloride (Sodium Chloride 0.9% 10 Ml Flush Syringe) 10 ml IV BID [facility]PL[facility]ED [facility] Last Admin: 04/12/20 10:11 Dose: 10 ml Documented by: Sodium Chloride (Sodium Chloride 0.9% 10 Ml Flush Syringe) 10 ml IV PRN PRN PRN Reason: LINE FLUSH Sodium Chloride (Sodium Chloride 0.9% 10 Ml Flush Syringe) 10 ml IV PRN PRN PRN Reason: LINE FLUSH Last Admin: 04/11/20 17:47 Dose: 10 ml Documented by: Trazodone HCl (Trazodone 50 Mg Tab) 50 mg PO QHS REPLACED BY [facility] Last Admin: 04/11/20 21:27 Dose: 50 mg Documented by: Review of Systems All systems: negative (As per the HPI) Physical Examination Vital Signs Temp Pulse Resp BP Pulse Ox 97.4 F L 76 18 119/53 100 04/10/20 22:14 04/10/20 22:14 04/10/20 22:14 04/10/20 22:14 04/10/20 22:14 General appearance: no acute distress, well-nourished HEENT: Positive: PERRL, Mucus Membranes Moist Neck: Positive: neck supple, trachea midline Cardiac: Positive: Reg Rate and Rhythm, S1/S2, Audible Murmur (2/6) Lungs: Positive: clear to auscultation, Normal Breath Sounds Neuro: Positive: Grossly Intact Abdomen: Positive: Soft, Active Bowel Sounds. Negative: Tender, Distended Male genitourinary: Positive: normal Skin: Positive: Clear Incision: Cardiac Cath Site Musculoskeletal: No Pain, Normal Range of Motion Extremities: Present: normal. Absent: edema Results 04/10/20 22:48 04/10/20 22:48 - Imaging and Cardiology Echo: report reviewed (Normal LV function aortic valve sclerosis borderlines aortic stenosis. Has severe posterior leaflet calcification and severe mitral stenosis) EKG interpretations - Telemetry EKG Rhythm: Sinus Rhythm (Sinus rhythm nonspecific ST-T early repolarization) Assessment and Plan 60-year-old male end-stage renal disease on hemodialysis hypertension has chest pain with a non-ST elevation type II. Patient chest pain is atypical in nature. But found on echocardiogram with normal function with severe mitral stenosis. Patient will continue aspirin statin beta-kasia therapy. Scheduled for right and left heart catheterization on Wednesday patient is pending inpatient treatment for suicidal ideation - Patient Problems (1) NSTEMI (non-ST elevated myocardial infarction) Current Visit: Yes Status: Acute Plan to address problem: Type II (2) Mitral stenosis Current Visit: Yes Status: Chronic Qualifiers: Cardiac valve disease etiology: nonrheumatic Qualified Code(s): I34.2 - Nonrheumatic mitral (valve) stenosis (3) Chest pain Current Visit: Yes Status: Acute Qualifiers: Chest pain type: unspecified Qualified Code(s): R07.9 - Chest pain, unspecified (4) Diabetes Current Visit: Yes Status: Chronic Qualifiers: Diabetes mellitus type: type 2 Diabetes mellitus 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
--- NOTE | 2020-04-12 17:29 | Progress Note ---
Assessment and Plan Assessment * End-stage renal disease on hemodialysis * Anemia of end-stage renal disease * Hyperkalemia, mild * Chest pain * Mitral stenosis, severe * Depression/suicidal ideation Recommendations * Seen on dialysis today, tolerating without any complications * Cardiology note reviewed * Hold Epogen until acute issues have been resolved * Psych note reviewed * Renally dose medications * Avoid nephrotoxins Subjective Date of service: 04/12/20 Principal diagnosis: Chest pain Interval history: Vitals, I/O reviewed Nursing, interdisciplinary and consult note reviewed Seen on dialysis, tolerating without any complications Objective - Exam Narrative Exam: Constitutional: no acute distress Head: NC/AT Neck: supple Lungs: clear to auscultation CV: RRR, no M/R/G Abdomen: soft, non-tender, bowel sounds present Back: nontender Extremities: no edema, pulses WNL Skin: intact Neuro: no focal deficits, alert and oriented x4 - Vital Signs Vital signs: Vital Signs - 12hr 04/12/20 04/12/20 04/12/20 07:31 11:35 11:45 Temperature 98.0 F 98.2 F Pulse Rate 71 73 73 Respiratory 18 20 Rate Blood Pressure 145/70 130/75 O2 Sat by Pulse 95 99 Oximetry 04/12/20 17:07 Temperature 99.0 F Pulse Rate 65 Respiratory 18 Rate Blood Pressure 149/80 O2 Sat by Pulse 98 Oximetry - Lab 04/10/20 22:48 04/10/20 22:48 Most recent lab results Calcium 8.8 mg/dL (8.4-10.2) 04/10/20 22:48 Medications & Allergies - Medications Allergies/Adverse Reactions: Allergies buspirone [From BuSpar] Allergy (Verified 04/10/20 22:24) Itching Penicillins Allergy (Verified 04/10/20 22:14) Headache Home Medications: Home Medications Medication Instructions Recorded Confirmed Last Taken Type ALPRAZolam [Xanax TAB] 1 mg PO BID PRN 04/11/20 04/11/20 Unknown History Risperdal 1 mg PO BID 04/11/20 04/11/20 Unknown History carvediloL 10 mg PO BID 04/11/20 04/11/20 Unknown History Active Medications: Generic Name Dose Route Start Last Admin Trade Name Freq PRN Reason Stop Dose Admin Acetaminophen 650 mg 04/11/20 12:14 04/11/20 21:27 Acetaminophen 325 Mg Tab PO 650 mg Q4H PRN Administration Pain MILD(1-3)/Fever >100.5/PERERA Albuterol 2.5 mg 04/11/20 12:14 04/11/20 17:13 Albuterol 2.5 Mg/3 Ml Nebu IH 2.5 mg Q4HRT PRN Administration Shortness Of Breath Aspirin 325 mg 04/12/20 12:00 Aspirin 325 Mg Tab PO QDAY JUAN Atorvastatin Calcium 40 mg 04/11/20 22:00 04/11/20 21:27 Atorvastatin 40 Mg Tab PO 40 mg QHS JUAN Administration Carvedilol 12.5 mg 04/11/20 22:00 04/12/20 10:11 Carvedilol 12.5 Mg Tab PO 12.5 mg BID JUAN Administration Divalproex Sodium 125 mg 04/11/20 12:00 04/12/20 10:[address] 125 Mg Tab PO 125 mg BID JUAN Administration Fluoxetine HCl 20 mg 04/12/20 12:00 Fluoxetine 20 Mg Cap PO QDAY JUAN Sodium Chloride 100 mls @ 999 mls/hr 04/12/20 10:29 Nacl 0.9% IV LORE PRN Hypotension Nitroglycerin 0.4 mg 04/11/20 12:14 Nitroglycerin 0.4 Mg Tab Subl SL Q5M PRN Chest Pain Ondansetron HCl 4 mg 04/11/20 12:14 04/11/20 17:12 Ondansetron 4 Mg/2 Ml Inj IV 4 mg Q8H PRN Administration Nausea And Vomiting Sodium Chloride 10 ml 04/11/20 22:00 04/12/20 10:11 Sodium Chloride 0.9% 10 Ml Flush Syringe IV 10 ml BID JUAN Administration Sodium Chloride 10 ml 04/11/20 12:14 Sodium Chloride 0.9% 10 Ml Flush Syringe IV PRN PRN LINE FLUSH Sodium Chloride 10 ml 04/11/20 12:14 04/11/20 17:47 Sodium Chloride 0.9% 10 Ml Flush Syringe IV 10 ml PRN PRN Administration LINE FLUSH Trazodone HCl 50 mg 04/11/20 22:00 04/11/20 21:27 Trazodone 50 Mg Tab PO 50 mg QHS JUAN Administration
[2020-04-12] MEDS: ASPIRIN 325 MG TAB PO SCH (17:41)
[2020-04-12] MEDS: FLUoxetine 20 MG CAP PO SCH (17:41)
--- NOTE | 2020-04-12 19:28 | Progress Note ---
Assessment and Plan - Patient Problems (1) CHF (congestive heart failure) Current Visit: Yes Status: Acute Qualifiers: Heart failure type: diastolic Heart failure chronicity: acute Qualified Code(s): I50.31 - Acute diastolic (congestive) heart failure Plan to address problem: Strict I's/O, monitor urine output every shift, daily weight, afterload reduction, monitor fluid balance, cardiology team consulted, echo cardiogram reviewed (2) Obesity hypoventilation syndrome Current Visit: Yes Status: Resolved Plan to address problem: Supplemental oxygen, pulse oximetry, noninvasive positive pressure ventilation as clinically indicated, outpatient pulmonary follow-up for sleep study. (3) Suicidal ideation Current Visit: Yes Status: Acute Plan to address problem: Mental health team consulted, supportive care, continue medical management. [address] (4) ESRD (end stage renal disease) Current Visit: Yes Status: Acute Plan to address problem: Nephrology team consulted in ED, dialysis as per renal team, strict I's/O, avoid nephrotoxic agents. (5) Diabetes Current Visit: Yes Status: Chronic Qualifiers: Diabetes mellitus type: type 2 Diabetes mellitus ferry terminal agent insulin use: without correction use Plan to address problem: Sliding-scale insulin therapy, Accu-Chek, hypoglycemia protocol. (6) Hypertension Current Visit: Yes Status: Chronic Qualifiers: Hypertension type: essential hypertension Qualified Code(s): I10 - Essential (primary) hypertension Plan to address problem: Monitor blood pressure every shift, continue medical management. (7) Aortic stenosis Current Visit: Yes Status: Acute Qualifiers: Cardiac valve disease etiology: etiology unspecified Qualified Code(s): I35.0 - Nonrheumatic aortic (valve) stenosis Plan to address problem: Continue current care, patient pending cardiac cath. (8) Gastroesophageal reflux disease Current Visit: Yes Status: Acute Qualifiers: Esophagitis presence: without esophagitis Qualified Code(s): K21.9 - Gastro-esophageal reflux disease without esophagitis Plan to address problem: PPI therapy, supportive care. (9) DVT prophylaxis Current Visit: Yes Status: Acute Plan to address problem: SCD to bilateral lower extremities while in bed, patient is ambulatory. History Interval history: 60 YO Male HD #2 with Type 2 NSTEMI, Aortic Stenosis, Suicide Ideation with [address] and 1:1 sitter, HTN, CHF, GERD, DM, ESRD on HD(M,W,F), OA, Obesity Hypoventilation Syndrome. Patient is pending cardiac catheterization as per cardiology team. Patient states that he feels a little better today. No reported nursing events. Hospitalist Physical - Constitutional Vitals: Temp Pulse Resp BP Pulse Ox 99.0 F 65 18 149/80 98 04/12/20 17:07 04/12/20 17:07 04/12/20 17:07 04/12/20 17:07 04/12/20 17:07 General appearance: Present: no acute distress, well-nourished - EENT Eyes: Present: PERRL, EOM intact ENT: hearing intact - Neck Neck: Present: supple - Respiratory Respiratory: bilateral: CTA - Cardiovascular Rhythm: regular Heart Sounds: Present: S1 & S2 - Extremities Extremities: no ischemia Peripheral Pulses: within normal limits - Abdominal General gastrointestinal: soft, non-tender, non-distended - Integumentary Integumentary: Present: clear, dry - Psychiatric Psychiatric: cooperative - Neurologic Neurologic: CNII-XII intact HEART Score - HEART Score Troponin: Troponin T 0.114 ng/mL (0.00-0.029) H* 04/11/20 19:34 Results - Labs CBC & Chem 7: 04/10/20 22:48 04/10/20 22:48 Labs: Laboratory Last Values WBC 9.0 K/mm3 (4.5-11.0) 04/10/20 22:48 RBC 3.08 M/mm3 (3.65-5.03) L 04/10/20 22:48 Hgb 9.3 gm/dl (11.8-15.2) L 04/10/20 22:48 Hct 28.0 % (35.5-45.6) L 04/10/20 22:48 MCV 91 fl (84-94) 04/10/20 22:48 MCH 30 pg (28-32) 04/10/20 22:48 MCHC 33 % (32-34) 04/10/20 22:48 RDW 19.2 % (13.2-15.2) H 04/10/20 22:48 Plt Count 101 K/mm3 (140-440) L 04/10/20 22:48 Lymph % (Auto) Assembling Machine Operator 04/10/20 22:48 Lymph # (Auto) Assembling Machine Operator 04/10/20 22:48 Add Manual Diff Complete 04/10/20 22:48 Total Counted 100 04/10/20 22:48 Seg Neuts % (Manual) 50.0 % (40.0-70.0) 04/10/20 22:48 Lymphocytes % (Manual) 44.0 % (13.4-35.0) H 04/10/20 22:48 Monocytes % (Manual) 4.0 % (0.0-7.3) 04/10/20 22:48 Metamyelocytes % 2.0 % 04/10/20 22:48 Nucleated RBC % Not Reportable 04/10/20 22:48 Seg Neutrophils # Man 4.5 K/mm3 (1.8-7.7) 04/10/20 22:48 Band Neutrophils # 0.0 K/mm3 04/10/20 22:48 Lymphocytes # (Manual) 4.0 K/mm3 (1.2-5.4) 04/10/20 22:48 Abs React Lymphs (Man) 0.0 K/mm3 04/10/20 22:48 Monocytes # (Manual) 0.4 K/mm3 (0.0-0.8) 04/10/20 22:48 Eosinophils # (Manual) 0.0 K/mm3 (0.0-0.4) 04/10/20 22:48 Basophils # (Manual) 0.0 K/mm3 (0.0-0.1) 04/10/20 22:48 Metamyelocytes # 0.2 K/mm3 04/10/20 22:48 Myelocytes # 0.0 K/mm3 04/10/20 22:48 Promyelocytes # 0.0 K/mm3 04/10/20 22:48 Blast Cells # 0.0 K/mm3 04/10/20 22:48 WBC Morphology Not Reportable 04/10/20 22:48 Hypersegmented Neuts Not Reportable 04/10/20 22:48 Hyposegmented Neuts Not Reportable 04/10/20 22:48 Hypogranular Neuts Not Reportable 04/10/20 22:48 Smudge Cells Not Reportable 04/10/20 22:48 Toxic Granulation Not Reportable 04/10/20 22:48 Toxic Vacuolation Not Reportable 04/10/20 22:48 Dohle Bodies Not Reportable 04/10/20 22:48 Pelger-Huet Anomaly Not Reportable 04/10/20 22:48 Alex Rods Not Reportable 04/10/20 22:48 Platelet Estimate Consistent w auto 04/10/20 22:48 Clumped Platelets Not Reportable 04/10/20 22:48 Plt Clumps, EDTA Not Reportable 04/10/20 22:48 Large Platelets Not Reportable 04/10/20 22:48 Giant Platelets Not Reportable 04/10/20 22:48 Platelet Satelliting Not Reportable 04/10/20 22:48 Plt Morphology Comment Not Reportable 04/10/20 22:48 RBC Morphology Not Reportable 04/10/20 22:48 Dimorphic RBCs Not Reportable 04/10/20 22:48 Polychromasia Not Reportable 04/10/20 22:48 Hypochromasia Not Reportable 04/10/20 22:48 Poikilocytosis Not Reportable 04/10/20 22:48 Anisocytosis 1+ 04/10/20 22:48 Microcytosis Few 04/10/20 22:48 Macrocytosis Few 04/10/20 22:48 Spherocytes Not Reportable 04/10/20 22:48 Pappenheimer Bodies Not Reportable 04/10/20 22:48 Sickle Cells Not Reportable 04/10/20 22:48 Target Cells Not Reportable 04/10/20 22:48 Tear Drop Cells Not Reportable 04/10/20 22:48 Ovalocytes Few 04/10/20 22:48 Helmet Cells Not Reportable 04/10/20 22:48 Meredith-Manito Bodies Not Reportable 04/10/20 22:48 [place] Rings Not Reportable 04/10/20 22:48 [place] Cells Not Reportable 04/10/20 22:48 Bite Cells Not Reportable 04/10/20 22:48 Crenated Cell Not Reportable 04/10/20 22:48 Elliptocytes Not Reportable 04/10/20 22:48 Acanthocytes (Spur) Not Reportable 04/10/20 22:48 Rouleaux Not Reportable 04/10/20 22:48 Hemoglobin C Crystals Not Reportable 04/10/20 22:48 Schistocytes Not Reportable 04/10/20 22:48 Malaria parasites Not Reportable 04/10/20 22:48 Jorge Bodies Not Reportable 04/10/20 22:48 Hem Pathologist Commnt No 04/10/20 22:48 D-Dimer 1489.25 ng/mlDDU (0-234) H 04/11/20 07:18 Sodium 135 mmol/L (137-145) L 04/10/20 22:48 Potassium 5.6 mmol/L (3.6-5.0) H 04/10/20 22:48 Chloride 96.9 mmol/L (98-107) L 04/10/20 22:48 Carbon Dioxide 24 mmol/L (22-30) 04/10/20 22:48 Anion Gap 20 mmol/L 04/10/20 22:48 BUN 49 mg/dL (9-20) H 04/10/20 22:48 Creatinine 7.3 mg/dL (0.8-1.3) H 04/10/20 22:48 Estimated GFR 8 ml/min 04/10/20 22:48 BUN/Creatinine Ratio 7 % 04/10/20 22:48 Glucose 91 mg/dL (75-100) 04/10/20 22:48 Calcium 8.8 mg/dL (8.4-10.2) 04/10/20 22:48 Troponin T 0.114 ng/mL (0.00-0.029) H* 04/11/20 19:34 Triglycerides 260 mg/dL (2-149) H 04/10/20 22:48 Cholesterol 151 mg/dL (50-199) 04/10/20 22:48 LDL Cholesterol Direct 90 mg/dL (50-130) 04/10/20 22:48 HDL Cholesterol 28 mg/dL (40-59) L 04/10/20 22:48 Cholesterol/HDL Ratio 5.39 % 04/10/20 22:48 Urine Opiates Screen Negative 04/11/20 15:54 Urine Methadone Screen Negative 04/11/20 15:54 Ur Barbiturates Screen Negative 04/11/20 15:54 Ur Phencyclidine Scrn Negative 04/11/20 15:54 Ur Amphetamines Screen Negative 04/11/20 15:54 U Benzodiazepines Scrn Negative 04/11/20 15:54 Urine Cocaine Screen Negative 04/11/20 15:54 U Marijuana (THC) Screen Negative 04/11/20 15:54 Drugs of Abuse Note Disclamer 04/11/20 15:54 - Diagnostic Impressions Diagnostic Impressions: Echocardiogram 04/11/20 12:16 Transthoracic Echocardiogram Indication: Angina BP: 126/62 HR: 78 Conclusions *Global left ventricular systolic function is normal. *The estimated ejection fraction is 50-55%. *Abnormal left ventricular diastolic filling is observed, consistent with impaired relaxation. *The right ventricular global systolic function is normal. *Mild aortic leaflet calcification is visualized. *The mean gradient of the aortic valve is 12 mmHg. *The peak instantaneous gradient of the aortic valve is 28 mmHg. *Mitral valve posterior leaflet calcification is visualized. *Moderate mitral leaflet calcification is visualized. *There is trace of mitral regurgitation. *The mean gradient across the mitral valve is 12 mmHg. *There is severe mitral stenosis. *There is mild tricuspid regurgitation. *The right ventricular systolic pressure is calculated at 63 mmHg. *There is trace pulmonic regurgitation. Findings Left Ventricle: The left ventricular chamber size is normal. Moderate concentric left ventricular hypertrophy is observed. Global left ventricular wall motion and contractility are within normal limits. Global left ventricular systolic function is normal. The estimated ejection fraction is 50-55%. Abnormal left ventricular diastolic filling is observed, consistent with impaired relaxation. Right Ventricle: The right ventricular cavity size is normal. The right ventricular global systolic function is normal. Right Atrium: The right atrial cavity size is normal. Aortic Valve: Mild aortic leaflet calcification is visualized. There is mild aortic stenosis. The mean gradient of the aortic valve is 12 mmHg. The peak instantaneous gradient of the aortic valve is 28 mmHg. Mitral Valve: Moderate mitral leaflet calcification is visualized. Mitral valve posterior leaflet calcification is visualized. There is trace of mitral regurgitation. There is severe mitral stenosis. The mean gradient across the mitral valve is 12 mmHg. Tricuspid Valve: The tricuspid valve leaflets are normal. There is mild tricuspid regurgitation. The right ventricular systolic pressure is calculated at 63 mmHg. Pulmonic Valve: The pulmonic valve appears normal. There is trace pulmonic regurgitation. Pericardium: There is no pericardial effusion. Aorta: The aorta appears normal. Venous: The inferior vena cava appears normal. Measurements Chambers 2D Name Value Normal Range IVSd (2D) 1.47 cm (0.6 - 1.1) LVPWd (2D) 1.34 cm (0.6 - 1.1) LVIDd (2D) 4.54 cm (3.7 - 5.6) LVIDs (2D) 3.37 cm (2 - 3.8) LV FS (2D) 25.79 % - EF Teichholz (2D) 50.83 % - Ao root diameter (2D) 3.16 cm (2 - 3.7) Volumes/Mass Name Value Normal Range LA ESV SP 4CH (A/L) 86.02 ml - LA ESV SP 2CH (A/L) 65.12 ml - LA ESV BP (A/L) 77.58 ml - LA ESV BP (A/L) index 36.94 ml/m2 - LA ESV SP 4CH (MOD) 75.03 ml - LA ESV SP 2CH (MOD) 59.14 ml - LA ESV BP (MOD) 68.65 ml - LA ESV BP (MOD) index 32.69 ml/m2 - Diastolic/Systolic Function Name Value Normal Range MV E-wave Vmax 1.63 m/sec - MV deceleration time 400.08 msec - MV A-wave Vmax 2.27 m/sec - MV E:A ratio 0.72 ratio - Aortic Valve Name Value Normal Range AV Vmax 2.65 m/sec - AV VTI 42.93 cm - AV peak gradient 28 mmHg - AV mean gradient 12 mmHg - LVOT diameter 2.07 cm - LVOT Vmax 2.24 m/sec - LVOT VTI 33.38 cm - LVOT peak gradient 20.09 mmHg - LVOT mean gradient 9.62 mmHg - SV LVOT 112.09 ml - DONAVON (continuity Vmax) 2.84 cm2 - DONAVON (continuity VTI) 2.61 cm2 - AR PHT 440.86 msec - AR peak gradient 46.73 mmHg - Mitral Valve Name Value Normal Range MV Vmax 2.68 m/sec - MV VTI 74.83 cm - MV peak gradient 28.75 mmHg - MV mean gradient 12 mmHg - MVA (continuity VTI) 1.5 cm2 - Tricuspid Valve Name Value Normal Range TR Vmax 3.87 m/sec - TR peak gradient 60 mmHg - RAP 3 mmHg - RVSP 63 mmHg - Pulmonic Valve/Qp:Qs Name Value Normal Range PV Vmax 1.01 m/sec - PV peak gradient 4.1 mmHg - [place] end-diastolic Vmax 1.79 m/sec - PV acceleration time 91.34 msec - Carlos/IV: Voiding Method Toilet IV Catheter Type [Right Wrist] Peripheral IV Active Medications - Current Medications Current Medications: Generic Name Dose Route Start Last Admin Trade Name Freq PRN Reason Stop Dose Admin Acetaminophen 650 mg 04/11/20 12:14 04/11/20 21:27 Acetaminophen 325 Mg Tab PO 650 mg Q4H PRN Administration Pain MILD(1-3)/Fever >100.5/PERERA Albuterol 2.5 mg 04/11/20 12:14 04/11/20 17:13 Albuterol 2.5 Mg/3 Ml Nebu IH 2.5 mg Q4HRT PRN Administration Shortness Of Breath Aspirin 325 mg 04/12/20 12:00 04/12/20 17:41 Aspirin 325 Mg Tab PO 325 mg QDAY JUAN Administration Atorvastatin Calcium 40 mg 04/11/20 22:00 04/11/20 21:27 Atorvastatin 40 Mg Tab PO 40 mg QHS JUAN Administration Carvedilol 12.5 mg 04/11/20 22:00 04/12/20 10:11 Carvedilol 12.5 Mg Tab PO 12.5 mg BID JUAN Administration Divalproex Sodium 125 mg 04/11/20 12:00 04/12/20 10:[address] 125 Mg Tab PO 125 mg BID JUAN Administration Fluoxetine HCl 20 mg 04/12/20 12:00 04/12/20 17:41 Fluoxetine 20 Mg Cap PO 20 mg QDAY JUAN Administration Sodium Chloride 100 mls @ 999 mls/hr 04/12/20 10:29 Nacl 0.9% IV LORE PRN Hypotension Nitroglycerin 0.4 mg 04/11/20 12:14 Nitroglycerin 0.4 Mg Tab Subl SL Q5M PRN Chest Pain Ondansetron HCl 4 mg 04/11/20 12:14 04/11/20 17:12 Ondansetron 4 Mg/2 Ml Inj IV 4 mg Q8H PRN Administration Nausea And Vomiting Sodium Chloride 10 ml 04/11/20 22:00 04/12/20 10:11 Sodium Chloride 0.9% 10 Ml Flush Syringe IV 10 ml BID JUAN Administration Sodium Chloride 10 ml 04/11/20 12:14 Sodium Chloride 0.9% 10 Ml Flush Syringe IV PRN PRN LINE FLUSH Sodium Chloride 10 ml 04/11/20 12:14 04/11/20 17:47 Sodium Chloride 0.9% 10 Ml Flush Syringe IV 10 ml PRN PRN Administration LINE FLUSH Trazodone HCl 50 mg 04/11/20 22:00 04/11/20 21:27 Trazodone 50 Mg Tab PO 50 mg QHS JUAN Administration Nutrition/Malnutrition Assess - Dietary Evaluation Nutrition/Malnutrition Findings: Nutrition Notes Start: 04/12/20 1 0:16 Freq: Status: Active Protocol: Document 04/12/20 10:16 LM (Rec: 04/12/20 10:17 LM [id number]) Nutrition Notes Need for Assessment generated from: wheel press clerk Initial or Follow up Brief Note Current Diagnosis CKD (stage V CKD),Diabetes, Hypertension,Heart Failure Other Pertinent Diagnosis Suicidal ideations Current Diet Renal Subjective/Other Information RN screen for new DM. Pt is not newly dx with DM. Nutrition Intervention Revisit per MD consult or patient Sign Off request:
[2020-04-12 19:52] LABS: Hepatitis B Surface Antigen Non-Reactive (Negative); Hepatitis C Virus Antibody Non-Reactive (NonReactive)
[2020-04-12] MEDS: ACETAMINOPHEN 325 MG TAB PO PRN (20:13)
[2020-04-12] MEDS: traZODone 50 MG TAB PO SCH ×2 (20:13→21:02)
[2020-04-13] MEDS: ACETAMINOPHEN 325 MG TAB PO PRN (00:05)
[2020-04-13] MEDS: oxyCODONE 5 MG TAB PO PRN (04:03)
[2020-04-13] MEDS: oxyCODONE /ACETAMINOPHEN 5-325MG TAB PO PRN ×3 (04:03→21:45)
[2020-04-13] MEDS: DIVALPROEX DR 125 MG TAB PO SCH ×2 (10:39→21:44)
[2020-04-13] MEDS: FLUoxetine 20 MG CAP PO SCH (10:39)
[2020-04-13] MEDS: carvediloL 12.5 MG TAB PO SCH ×2 (10:39→21:45)
[2020-04-13] MEDS: ASPIRIN 325 MG TAB PO SCH (10:39)
--- NOTE | 2020-04-13 11:20 | Progress Note ---
Assessment and Plan 60-year-old male end-stage renal disease on hemodialysis hypertension has chest pain with a non-ST elevation type II. Patient chest pain is atypical in nature. But found on echocardiogram with normal function with severe mitral stenosis. Patient will continue aspirin statin beta-kasia therapy. Scheduled for right and left heart catheterization on Wednesday patient is pending inpatient treatment for suicidal ideation - Patient Problems (1) NSTEMI (non-ST elevated myocardial infarction) Current Visit: Yes Status: Acute (2) Mitral stenosis Current Visit: Yes Status: Chronic Qualifiers: Cardiac valve disease etiology: nonrheumatic Qualified Code(s): I34.2 - Nonrheumatic mitral (valve) stenosis (3) Chest pain Current Visit: Yes Status: Acute Qualifiers: Chest pain type: unspecified Qualified Code(s): R07.9 - Chest pain, unspecified (4) Diabetes Current Visit: Yes Status: Chronic Qualifiers: Diabetes mellitus type: type 2 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 insulin 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: without assisted use (5) ESRD (end stage renal disease) Current Visit: Yes Status: Acute (6) Hypertension Current Visit: Yes Status: Chronic Qualifiers: Hypertension type: essential hypertension Qualified Code(s): I10 - Essential (primary) hypertension (7) Obesity hypoventilation syndrome Current Visit: Yes Status: Resolved (8) Suicidal ideation Current Visit: Yes Status: Acute Subjective Date of service: 04/13/20 Principal diagnosis: Chest pain Interval history: Lying in bed without any issue no chest pain or shortness of Objective Vital Signs Temp Pulse Resp BP Pulse Ox 04/13/20 09:02 96 04/13/20 07:27 97.8 F 62 18 134/71 96 04/13/20 03:52 98.1 F 71 18 124/65 99 04/12/20 23:26 98.9 F 74 18 100/56 97 04/12/20 23:00 79 04/12/20 22:00 18 04/12/20 19:53 98.5 F 84 18 107/61 97 04/12/20 17:07 99.0 F 65 18 149/80 98 04/12/20 16:45 99.0 F 64 18 118/55 04/12/20 16:30 63 116/66 04/12/20 16:15 62 126/72 04/12/20 16:00 64 127/74 04/12/20 15:45 64 127/74 04/12/20 15:30 60 137/73 04/12/20 15:15 59 L 148/83 04/12/20 15:00 59 L 148/83 04/12/20 14:45 60 139/82 04/12/20 14:30 58 L 145/82 04/12/20 14:15 63 145/53 04/12/20 14:00 61 128/71 04/12/20 13:45 63 134/71 04/12/20 13:30 61 139/74 04/12/20 13:15 66 114/52 04/12/20 13:00 99.2 F 68 18 134/80 04/12/20 11:45 73 04/12/20 11:35 98.2 F 73 20 130/75 99 - Physical Examination HEENT: Positive: PERRL, Mucus Membranes Moist Neck: Positive: neck supple, trachea midline, thyromegaly Cardiac: Positive: Reg Rate and Rhythm, Audible Murmur Lungs: Positive: clear to auscultation Neuro: Positive: Grossly Intact Abdomen: Positive: Soft, Active Bowel Sounds. Negative: Tender, Distended Skin: Positive: Clear Incision: Cardiac Cath Site Musculoskeletal: No Pain, Normal Range of Motion Extremities: Present: normal. Absent: edema - Imaging and Cardiology Echo: report reviewed (Normal LV function aortic valve sclerosis borderlines aortic stenosis. Has severe posterior leaflet calcification and severe mitral stenosis) - Telemetry EKG Rhythm: Sinus Rhythm
--- NOTE | 2020-04-13 11:59 | Progress Note ---
Subjective - Reason for Consult Consult date: 04/13/20 Reason for consult: MHE Requesting physician: BARBIE CRAFT - Chief Complaint Chief complaint: Psych Progress Patient seen this a.m. in room, patient reporting much better today says his mood is better he has been has been sleeping good based on discussion that we had yesterday it is no longer feel any suicidal thoughts or ideations at this moment. Patient reported he would like to be set up with an outpatient primary care provider in the area if possible, to discuss his dialysis management, patient informed to discuss that with his hospitalist prior to dsicharge REVIEW OF SYSTEMS Constitutional: Negative for weight loss ENT: Negative for stridor Respiratory: Negative for cough or hemoptysis All other systems reviewed and are negative MENTAL STATUS EXAMINATION General Appearance and Behavior: Age appropriate, good hygiene, wearing appropriate clothes, good eye contact, cooperative polite with questioning. Cooperation: Participating/engaged Psychomotor Behavior: unremarkable and within normal limits Mood: Good Affect and affective range: congruent with mood Thought Process: Fluent/Logical, Thought Content: Within reality, Speech: Normal volume, Regular rate and rhythm, Intellectual Functioning: Average Suicidal Ideation: Denies SI Homicidal Ideation: Denies HI Impulse Control: Unimpaired Insight and Judgment: Normal insight and judgment, Memory: Normal, Attention: Normal, Orientation: Alert, oriented, Assessment and Plan (1)Major Depressive Disorder (2)Suicidal Ideation Treatment Plan Outpatient [facility] with referral services MEDICATIONS: Risks, benefits and alternatives of medications discussed with the patient, questions answered and consent obtained from patient. PSYCHOTHERAPY: Supportive psychotherapy provided MEDICAL: Per primary team DELIRIUM PRECAUTIONS: Please re-orient patient frequently, keep lights on during the day, and minimize benzodiazepines and opiates as these medications could worsen patient's confusion. 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 Please contact with any questions and/or concerns. Mental Status Exam - Vital signs Last Vital Signs Temp 98.6 F 04/13/20 11:43 Pulse 68 04/13/20 11:43 Resp 18 04/13/20 11:43 BP 102/58 04/13/20 11:43 Pulse Ox 96 04/13/20 11:43
--- NOTE | 2020-04-13 20:23 | Progress Note ---
Assessment and Plan Assessment * End-stage renal disease on hemodialysis * Anemia of end-stage renal disease * Hyperkalemia, mild * NSTEMI II * Mitral stenosis, severe * Depression/suicidal ideation Recommendations * HD MWF * Cardiology note reviewed * Hold Epogen until acute issues have resolved * Psych note reviewed * Renally dose medications * Avoid nephrotoxins Subjective Date of service: 04/13/20 Principal diagnosis: Chest pain Interval history: Vitals, I/O reviewed Nursing, interdisciplinary and consult note reviewed Sitting up in bed, appears anxious Objective - Exam Narrative Exam: Constitutional: no acute distress Head: NC/AT Neck: supple Lungs: clear to auscultation CV: RRR, no M/R/G Abdomen: soft, non-tender, bowel sounds present Back: nontender Extremities: no edema, pulses WNL Skin: intact Neuro: no focal deficits, alert and oriented x4 - Vital Signs Vital signs: Vital Signs - 12hr 04/13/20 04/13/20 04/13/20 09:02 10:00 11:00 Temperature Pulse Rate 60 Respiratory 18 Rate Blood Pressure O2 Sat by Pulse 96 Oximetry 04/13/20 04/13/20 04/13/20 11:43 16:42 19:35 Temperature 98.6 F 97.9 F 98.1 F Pulse Rate 68 63 66 Respiratory 18 18 14 Rate Blood Pressure 102/58 111/65 140/86 O2 Sat by Pulse 96 99 100 Oximetry - Lab 04/10/20 22:48 04/10/20 22:48 Most recent lab results Calcium 8.8 mg/dL (8.4-10.2) 04/10/20 22:48 Medications & Allergies - Medications Allergies/Adverse Reactions: Allergies buspirone [From BuSpar] Allergy (Verified 04/10/20 22:24) Itching Penicillins Allergy (Verified 04/10/20 22:14) Headache Home Medications: Home Medications Medication Instructions Recorded Confirmed Last Taken Type ALPRAZolam [Xanax TAB] 1 mg PO BID PRN 04/11/20 04/11/20 Unknown History Risperdal 1 mg PO BID 04/11/20 04/11/20 Unknown History carvediloL 10 mg PO BID 04/11/20 04/11/20 Unknown History FLUoxetine [PROzac] 20 mg PO QDAY #30 capsule 04/13/20 Unknown Rx Active Medications: Generic Name Dose Route Start Last Admin Trade Name Freq PRN Reason Stop Dose Admin Acetaminophen 650 mg 04/11/20 12:14 04/13/20 00:05 Acetaminophen 325 Mg Tab PO 650 mg Q4H PRN Administration Pain MILD(1-3)/Fever >100.5/PERERA Albuterol 2.5 mg 04/11/20 12:14 04/11/20 17:13 Albuterol 2.5 Mg/3 Ml Nebu IH 2.5 mg Q4HRT PRN Administration Shortness Of Breath Aspirin 325 mg 04/12/20 12:00 04/13/20 10:39 Aspirin 325 Mg Tab PO 325 mg QDAY JUAN Administration Atorvastatin Calcium 40 mg 04/11/20 22:00 04/12/20 21:02 Atorvastatin 40 Mg Tab PO Not Given QHS JUAN Carvedilol 12.5 mg 04/11/20 22:00 04/13/20 10:39 Carvedilol 12.5 Mg Tab PO 12.5 mg BID JUAN Administration Divalproex Sodium 125 mg 04/11/20 12:00 04/13/20 10:[address] 125 Mg Tab PO 125 mg BID JUAN Administration Fluoxetine HCl 20 mg 04/12/20 12:00 04/13/20 10:39 Fluoxetine 20 Mg Cap PO 20 mg QDAY JUAN Administration Sodium Chloride 100 mls @ 999 mls/hr 04/12/20 10:29 Nacl 0.9% IV LORE PRN Hypotension Nitroglycerin 0.4 mg 04/11/20 12:14 Nitroglycerin 0.4 Mg Tab Subl SL Q5M PRN Chest Pain Ondansetron HCl 4 mg 04/11/20 12:14 04/11/20 17:12 Ondansetron 4 Mg/2 Ml Inj IV 4 mg Q8H PRN Administration Nausea And Vomiting Oxycodone HCl 2.5 mg 04/13/20 00:52 04/13/20 04:03 Oxycodone 5 Mg Tab PO 2.5 mg Q6H PRN Administration Pain, Moderate (4-6) Oxycodone/Acetaminophen 1 tab 04/13/20 00:51 04/13/20 11:57 Oxycodone /Acetaminophen 5-325mg Tab PO 1 tab Q6H PRN Administration Pain, Moderate (4-6) Sodium Chloride 10 ml 04/11/20 22:00 04/13/20 10:40 Sodium Chloride 0.9% 10 Ml Flush Syringe IV 10 ml BID JUAN Administration Sodium Chloride 10 ml 04/11/20 12:14 Sodium Chloride 0.9% 10 Ml Flush Syringe IV PRN PRN LINE FLUSH Sodium Chloride 10 ml 04/11/20 12:14 04/11/20 17:47 Sodium Chloride 0.9% 10 Ml Flush Syringe IV 10 ml PRN PRN Administration LINE FLUSH Trazodone HCl 50 mg 04/11/20 22:00 04/12/20 21:02 Trazodone 50 Mg Tab PO Not Given QHS JUAN
[2020-04-13] MEDS ORDERED: EPOETIN ALFA 10,000 UNIT/1 ML INJ IV PRN (20:25)
[2020-04-13] MEDS ORDERED: SODIUM CHLORIDE 0.9% 100 ML IV PRN (20:25)
--- NOTE | 2020-04-13 21:40 | Progress Note ---
Assessment and Plan - Patient Problems (1) CHF (congestive heart failure) Current Visit: Yes Status: Acute Qualifiers: Heart failure type: diastolic Heart failure chronicity: acute Qualified Code(s): I50.31 - Acute diastolic (congestive) heart failure Plan to address problem: Strict I's/O, monitor urine output every shift, daily weight, afterload reduction, monitor fluid balance, cardiology team consulted, echo cardiogram reviewed (2) Obesity hypoventilation syndrome Current Visit: Yes Status: Resolved Plan to address problem: Supplemental oxygen, pulse oximetry, noninvasive positive pressure ventilation as clinically indicated, outpatient pulmonary follow-up for sleep study. (3) Suicidal ideation Current Visit: Yes Status: Acute Plan to address problem: Mental health team consulted, supportive care, continue medical management. [address] (4) ESRD (end stage renal disease) Current Visit: Yes Status: Acute Plan to address problem: Nephrology team consulted in ED, dialysis as per renal team, strict I's/O, avoid nephrotoxic agents. (5) Diabetes Current Visit: Yes Status: Chronic Qualifiers: Diabetes mellitus type: type 2 Diabetes mellitus terminal manager insulin use: without assisted use Plan to address problem: Sliding-scale insulin therapy, Accu-Chek, hypoglycemia protocol. (6) Hypertension Current Visit: Yes Status: Chronic Qualifiers: Hypertension type: essential hypertension Qualified Code(s): I10 - Essential (primary) hypertension Plan to address problem: Monitor blood pressure every shift, continue medical management. (7) Aortic stenosis Current Visit: Yes Status: Acute Qualifiers: Cardiac valve disease etiology: etiology unspecified Qualified Code(s): I35.0 - Nonrheumatic aortic (valve) stenosis Plan to address problem: Continue current care, patient pending cardiac cath. (8) Gastroesophageal reflux disease Current Visit: Yes Status: Acute Qualifiers: Esophagitis presence: without esophagitis Qualified Code(s): K21.9 - Gastro-esophageal reflux disease without esophagitis Plan to address problem: PPI therapy, supportive care. (9) DVT prophylaxis Current Visit: Yes Status: Acute Plan to address problem: SCD to bilateral lower extremities while in bed, patient is ambulatory. History Interval history: 60 YO Male HD #3 with Type 2 NSTEMI, Aortic Stenosis, Suicide Ideation with [address] and 1:1 sitter, HTN, CHF, GERD, DM, ESRD on HD(M,W,F), OA, Obesity Hypoventilation Syndrome. Patient is pending cardiac catheterization as per cardiology team. Patient states that he feels somewhat better compared to admission. No reported nursing events. Hospitalist Physical - Constitutional Vitals: Temp Pulse Resp BP Pulse Ox 98.1 F 66 14 140/86 100 04/13/20 19:35 04/13/20 19:35 04/13/20 19:35 04/13/20 19:35 04/13/20 19:35 General appearance: Present: no acute distress, well-nourished - EENT Eyes: Present: PERRL, EOM intact ENT: hearing intact - Neck Neck: Present: supple - Respiratory Respiratory effort: normal Respiratory: bilateral: diminished - Cardiovascular Rhythm: regular Heart Sounds: Present: S1 & S2 - Extremities Extremities: no ischemia Peripheral Pulses: within normal limits - Abdominal General gastrointestinal: soft, non-tender, non-distended - Integumentary Integumentary: Present: clear, dry - Psychiatric Psychiatric: cooperative - Neurologic Neurologic: CNII-XII intact HEART Score - HEART Score Troponin: Troponin T 0.114 ng/mL (0.00-0.029) H* 04/11/20 19:34 Results - Labs CBC & Chem 7: 04/10/20 22:48 04/10/20 22:48 Labs: Laboratory Last Values WBC 9.0 K/mm3 (4.5-11.0) 04/10/20 22:48 RBC 3.08 M/mm3 (3.65-5.03) L 04/10/20 22:48 Hgb 9.3 gm/dl (11.8-15.2) L 04/10/20 22:48 Hct 28.0 % (35.5-45.6) L 04/10/20 22:48 MCV 91 fl (84-94) 04/10/20 22:48 MCH 30 pg (28-32) 04/10/20 22:48 MCHC 33 % (32-34) 04/10/20 22:48 RDW 19.2 % (13.2-15.2) H 04/10/20 22:48 Plt Count 101 K/mm3 (140-440) L 04/10/20 22:48 Lymph % (Auto) [employer] 04/10/20 22:48 Lymph # (Auto) [employer] 04/10/20 22:48 Add Manual Diff Complete 04/10/20 22:48 Total Counted 100 04/10/20 22:48 Seg Neuts % (Manual) 50.0 % (40.0-70.0) 04/10/20 22:48 Lymphocytes % (Manual) 44.0 % (13.4-35.0) H 04/10/20 22:48 Monocytes % (Manual) 4.0 % (0.0-7.3) 04/10/20 22:48 Metamyelocytes % 2.0 % 04/10/20 22:48 Nucleated RBC % Not Reportable 04/10/20 22:48 Seg Neutrophils # Man 4.5 K/mm3 (1.8-7.7) 04/10/20 22:48 Band Neutrophils # 0.0 K/mm3 04/10/20 22:48 Lymphocytes # (Manual) 4.0 K/mm3 (1.2-5.4) 04/10/20 22:48 Abs React Lymphs (Man) 0.0 K/mm3 04/10/20 22:48 Monocytes # (Manual) 0.4 K/mm3 (0.0-0.8) 04/10/20 22:48 Eosinophils # (Manual) 0.0 K/mm3 (0.0-0.4) 04/10/20 22:48 Basophils # (Manual) 0.0 K/mm3 (0.0-0.1) 04/10/20 22:48 Metamyelocytes # 0.2 K/mm3 04/10/20 22:48 Myelocytes # 0.0 K/mm3 04/10/20 22:48 Promyelocytes # 0.0 K/mm3 04/10/20 22:48 Blast Cells # 0.0 K/mm3 04/10/20 22:48 WBC Morphology Not Reportable 04/10/20 22:48 Hypersegmented Neuts Not Reportable 04/10/20 22:48 Hyposegmented Neuts Not Reportable 04/10/20 22:48 Hypogranular Neuts Not Reportable 04/10/20 22:48 Smudge Cells Not Reportable 04/10/20 22:48 Toxic Granulation Not Reportable 04/10/20 22:48 Toxic Vacuolation Not Reportable 04/10/20 22:48 Dohle Bodies Not Reportable 04/10/20 22:48 Pelger-Huet Anomaly Not Reportable 04/10/20 22:48 Alex Rods Not Reportable 04/10/20 22:48 Platelet Estimate Consistent w auto 04/10/20 22:48 Clumped Platelets Not Reportable 04/10/20 22:48 Plt Clumps, EDTA Not Reportable 04/10/20 22:48 Large Platelets Not Reportable 04/10/20 22:48 Giant Platelets Not Reportable 04/10/20 22:48 Platelet Satelliting Not Reportable 04/10/20 22:48 Plt Morphology Comment Not Reportable 04/10/20 22:48 RBC Morphology Not Reportable 04/10/20 22:48 Dimorphic RBCs Not Reportable 04/10/20 22:48 Polychromasia Not Reportable 04/10/20 22:48 Hypochromasia Not Reportable 04/10/20 22:48 Poikilocytosis Not Reportable 04/10/20 22:48 Anisocytosis 1+ 04/10/20 22:48 Microcytosis Few 04/10/20 22:48 Macrocytosis Few 04/10/20 22:48 Spherocytes Not Reportable 04/10/20 22:48 Pappenheimer Bodies Not Reportable 04/10/20 22:48 Sickle Cells Not Reportable 04/10/20 22:48 Target Cells Not Reportable 04/10/20 22:48 Tear Drop Cells Not Reportable 04/10/20 22:48 Ovalocytes Few 04/10/20 22:48 Helmet Cells Not Reportable 04/10/20 22:48 [place] Bodies Not Reportable 04/10/20 22:48 Ambia Rings Not Reportable 04/10/20 22:48 Rudi Cells Not Reportable 04/10/20 22:48 Bite Cells Not Reportable 04/10/20 22:48 Crenated Cell Not Reportable 04/10/20 22:48 Elliptocytes Not Reportable 04/10/20 22:48 Acanthocytes (Spur) Not Reportable 04/10/20 22:48 Rouleaux Not Reportable 04/10/20 22:48 Hemoglobin C Crystals Not Reportable 04/10/20 22:48 Schistocytes Not Reportable 04/10/20 22:48 Malaria parasites Not Reportable 04/10/20 22:48 Jorge Bodies Not Reportable 04/10/20 22:48 Hem Pathologist Commnt No 04/10/20 22:48 D-Dimer 1489.25 ng/mlDDU (0-234) H 04/11/20 07:18 Sodium 135 mmol/L (137-145) L 04/10/20 22:48 Potassium 5.6 mmol/L (3.6-5.0) H 04/10/20 22:48 Chloride 96.9 mmol/L (98-107) L 04/10/20 22:48 Carbon Dioxide 24 mmol/L (22-30) 04/10/20 22:48 Anion Gap 20 mmol/L 04/10/20 22:48 BUN 49 mg/dL (9-20) H 04/10/20 22:48 Creatinine 7.3 mg/dL (0.8-1.3) H 04/10/20 22:48 Estimated GFR 8 ml/min 04/10/20 22:48 BUN/Creatinine Ratio 7 % 04/10/20 22:48 Glucose 91 mg/dL (75-100) 04/10/20 22:48 Calcium 8.8 mg/dL (8.4-10.2) 04/10/20 22:48 Troponin T 0.114 ng/mL (0.00-0.029) H* 04/11/20 19:34 Triglycerides 260 mg/dL (2-149) H 04/10/20 22:48 Cholesterol 151 mg/dL (50-199) 04/10/20 22:48 LDL Cholesterol Direct 90 mg/dL (50-130) 04/10/20 22:48 HDL Cholesterol 28 mg/dL (40-59) L 04/10/20 22:48 Cholesterol/HDL Ratio 5.39 % 04/10/20 22:48 Nasal Screen MRSA (PCR) Positive (Negative) 04/12/20 03:19 Urine Opiates Screen Negative 04/11/20 15:54 Urine Methadone Screen Negative 04/11/20 15:54 Ur Barbiturates Screen Negative 04/11/20 15:54 Ur Phencyclidine Scrn Negative 04/11/20 15:54 Ur Amphetamines Screen Negative 04/11/20 15:54 U Benzodiazepines Scrn Negative 04/11/20 15:54 Urine Cocaine Screen Negative 04/11/20 15:54 U Marijuana (THC) Screen Negative 04/11/20 15:54 Drugs of Abuse Note Disclamer 04/11/20 15:54 Hepatitis A IgM Ab Non-reactive (NonReactive) 04/12/20 18:52 Hep Bs Antigen Non-reactive (Negative) 04/12/20 18:52 Hep B Core IgM Ab Non-reactive (NonReactive) 04/12/20 18:52 Hepatitis C Antibody Non-reactive (NonReactive) 04/12/20 18:52 - Diagnostic Impressions Diagnostic Impressions: Echocardiogram 04/11/20 12:16 Transthoracic Echocardiogram Indication: Angina BP: 126/62 HR: 78 Conclusions *Global left ventricular systolic function is normal. *The estimated ejection fraction is 50-55%. *Abnormal left ventricular diastolic filling is observed, consistent with impaired relaxation. *The right ventricular global systolic function is normal. *Mild aortic leaflet calcification is visualized. *The mean gradient of the aortic valve is 12 mmHg. *The peak instantaneous gradient of the aortic valve is 28 mmHg. *Mitral valve posterior leaflet calcification is visualized. *Moderate mitral leaflet calcification is visualized. *There is trace of mitral regurgitation. *The mean gradient across the mitral valve is 12 mmHg. *There is severe mitral stenosis. *There is mild tricuspid regurgitation. *The right ventricular systolic pressure is calculated at 63 mmHg. *There is trace pulmonic regurgitation. Findings Left Ventricle: The left ventricular chamber size is normal. Moderate concentric left ventricular hypertrophy is observed. Global left ventricular wall motion and contractility are within normal limits. Global left ventricular systolic function is normal. The estimated ejection fraction is 50-55%. Abnormal left ventricular diastolic filling is observed, consistent with impaired relaxation. Right Ventricle: The right ventricular cavity size is normal. The right ventricular global systolic function is normal. Right Atrium: The right atrial cavity size is normal. Aortic Valve: Mild aortic leaflet calcification is visualized. There is mild aortic stenosis. The mean gradient of the aortic valve is 12 mmHg. The peak instantaneous gradient of the aortic valve is 28 mmHg. Mitral Valve: Moderate mitral leaflet calcification is visualized. Mitral valve posterior leaflet calcification is visualized. There is trace of mitral regurgitation. There is severe mitral stenosis. The mean gradient across the mitral valve is 12 mmHg. Tricuspid Valve: The tricuspid valve leaflets are normal. There is mild tricuspid regurgitation. The right ventricular systolic pressure is calculated at 63 mmHg. Pulmonic Valve: The pulmonic valve appears normal. There is trace pulmonic regurgitation. Pericardium: There is no pericardial effusion. Aorta: The aorta appears normal. Venous: The inferior vena cava appears normal. Measurements Chambers 2D Name Value Normal Range IVSd (2D) 1.47 cm (0.6 - 1.1) LVPWd (2D) 1.34 cm (0.6 - 1.1) LVIDd (2D) 4.54 cm (3.7 - 5.6) LVIDs (2D) 3.37 cm (2 - 3.8) LV FS (2D) 25.79 % - EF Teichholz (2D) 50.83 % - Ao root diameter (2D) 3.16 cm (2 - 3.7) Volumes/Mass Name Value Normal Range LA ESV SP 4CH (A/L) 86.02 ml - LA ESV SP 2CH (A/L) 65.12 ml - LA ESV BP (A/L) 77.58 ml - LA ESV BP (A/L) index 36.94 ml/m2 - LA ESV SP 4CH (MOD) 75.03 ml - LA ESV SP 2CH (MOD) 59.14 ml - LA ESV BP (MOD) 68.65 ml - LA ESV BP (MOD) index 32.69 ml/m2 - Diastolic/Systolic Function Name Value Normal Range MV E-wave Vmax 1.63 m/sec - MV deceleration time 400.08 msec - MV A-wave Vmax 2.27 m/sec - MV E:A ratio 0.72 ratio - Aortic Valve Name Value Normal Range AV Vmax 2.65 m/sec - AV VTI 42.93 cm - AV peak gradient 28 mmHg - AV mean gradient 12 mmHg - LVOT diameter 2.07 cm - LVOT Vmax 2.24 m/sec - LVOT VTI 33.38 cm - LVOT peak gradient 20.09 mmHg - LVOT mean gradient 9.62 mmHg - SV LVOT 112.09 ml - DONAVON (continuity Vmax) 2.84 cm2 - DONAVON (continuity VTI) 2.61 cm2 - AR PHT 440.86 msec - AR peak gradient 46.73 mmHg - Mitral Valve Name Value Normal Range MV Vmax 2.68 m/sec - MV VTI 74.83 cm - MV peak gradient 28.75 mmHg - MV mean gradient 12 mmHg - MVA (continuity VTI) 1.5 cm2 - Tricuspid Valve Name Value Normal Range TR Vmax 3.87 m/sec - TR peak gradient 60 mmHg - RAP 3 mmHg - RVSP 63 mmHg - Pulmonic Valve/Qp:Qs Name Value Normal Range PV Vmax 1.01 m/sec - PV peak gradient 4.1 mmHg - OK end-diastolic Vmax 1.79 m/sec - PV acceleration time 91.34 msec - Carlos/IV: Voiding Method Toilet IV Catheter Type [Right Wrist] Peripheral IV Active Medications - Current Medications Current Medications: Generic Name Dose Route Start Last Admin Trade Name Freq PRN Reason Stop Dose Admin Acetaminophen 650 mg 04/11/20 12:14 04/13/20 00:05 Acetaminophen 325 Mg Tab PO 650 mg Q4H PRN Administration Pain MILD(1-3)/Fever >100.5/PERERA Albuterol 2.5 mg 04/11/20 12:14 04/11/20 17:13 Albuterol 2.5 Mg/3 Ml Nebu IH 2.5 mg Q4HRT PRN Administration Shortness Of Breath Aspirin 325 mg 04/12/20 12:00 04/13/20 10:39 Aspirin 325 Mg Tab PO 325 mg QDAY JUAN Administration Atorvastatin Calcium 40 mg 04/11/20 22:00 04/12/20 21:02 Atorvastatin 40 Mg Tab PO Not Given QHS JUAN Carvedilol 12.5 mg 04/11/20 22:00 04/13/20 10:39 Carvedilol 12.5 Mg Tab PO 12.5 mg BID JUAN Administration Divalproex Sodium 125 mg 04/11/20 12:00 04/13/20 10:[address] 125 Mg Tab PO 125 mg BID JUAN Administration Fluoxetine HCl 20 mg 04/12/20 12:00 04/13/20 10:39 Fluoxetine 20 Mg Cap PO 20 mg QDAY JUAN Administration Sodium Chloride 100 mls @ 999 mls/hr 04/12/20 10:29 Nacl 0.9% IV LORE PRN Hypotension Nitroglycerin 0.4 mg 04/11/20 12:14 Nitroglycerin 0.4 Mg Tab Subl SL Q5M PRN Chest Pain Ondansetron HCl 4 mg 04/11/20 12:14 04/11/20 17:12 Ondansetron 4 Mg/2 Ml Inj IV 4 mg Q8H PRN Administration Nausea And Vomiting Oxycodone HCl 2.5 mg 04/13/20 00:52 04/13/20 04:03 Oxycodone 5 Mg Tab PO 2.5 mg Q6H PRN Administration Pain, Moderate (4-6) Oxycodone/Acetaminophen 1 tab 04/13/20 00:51 04/13/20 11:57 Oxycodone /Acetaminophen 5-325mg Tab PO 1 tab Q6H PRN Administration Pain, Moderate (4-6) Sodium Chloride 10 ml 04/11/20 22:00 04/13/20 10:40 Sodium Chloride 0.9% 10 Ml Flush Syringe IV 10 ml BID JUAN Administration Sodium Chloride 10 ml 04/11/20 12:14 Sodium Chloride 0.9% 10 Ml Flush Syringe IV PRN PRN LINE FLUSH Sodium Chloride 10 ml 04/11/20 12:14 04/11/20 17:47 Sodium Chloride 0.9% 10 Ml Flush Syringe IV 10 ml PRN PRN Administration LINE FLUSH Trazodone HCl 50 mg 04/11/20 22:00 04/12/20 21:02 Trazodone 50 Mg Tab PO Not Given QHS [facility] Nutrition/Malnutrition Assess - Dietary Evaluation Nutrition/Malnutrition Findings: Nutrition Notes Start: 04/12/20 10:16 Freq: Status: Active Protocol: Document 04/12/20 10:16 LM (Rec: 04/12/20 10:17 LM [email or web address]) Nutrition Notes 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 Pt is not newly dx with DM. Nutrition Intervention Revisit per MD consult or patient Sign Off request:
[2020-04-13] MEDS: traZODone 50 MG TAB PO SCH (21:44)
[2020-04-14] MEDS ORDERED: SODIUM CHLORIDE 0.9% 500 ML 500 ML IV SCH (10:00)
[2020-04-14] MEDS: DIVALPROEX DR 125 MG TAB PO SCH ×2 (10:04→22:55)
[2020-04-14] MEDS: FLUoxetine 20 MG CAP PO SCH (10:04)
[2020-04-14] MEDS: ASPIRIN 325 MG TAB PO SCH (10:04)
[2020-04-14] MEDS: oxyCODONE /ACETAMINOPHEN 5-325MG TAB PO PRN ×3 (10:04→22:55)
[2020-04-14] MEDS: carvediloL 12.5 MG TAB PO SCH ×2 (10:05→22:57)
--- NOTE | 2020-04-14 10:32 | Progress Note ---
Assessment and Plan 60-year-old male end-stage renal disease on hemodialysis hypertension has chest pain with a non-ST elevation type II. Patient chest pain is atypical in nature. But found on echocardiogram with normal function with severe mitral stenosis. Patient will continue aspirin statin beta-kasia therapy. Scheduled for right and left heart catheterization on Wednesday patient is pending inpatient treatment for suicidal ideation - Patient Problems (1) NSTEMI (non-ST elevated myocardial infarction) Current Visit: Yes Status: Acute (2) Mitral stenosis Current Visit: Yes Status: Chronic Qualifiers: Cardiac valve disease etiology: nonrheumatic Qualified Code(s): I34.2 - Nonrheumatic mitral (valve) stenosis (3) Chest pain Current Visit: Yes Status: Acute Qualifiers: Chest pain type: unspecified Qualified Code(s): R07.9 - Chest pain, unspecified (4) Diabetes Current Visit: Yes Status: Chronic Qualifiers: Diabetes mellitus type: type 2 Diabetes 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 director long term care insulin use: without retirement use (5) ESRD (end stage renal disease) Current Visit: Yes Status: Acute (6) Hypertension Current Visit: Yes Status: Chronic Qualifiers: Hypertension type: essential hypertension Qualified Code(s): I10 - Essential (primary) hypertension (7) Obesity hypoventilation syndrome Current Visit: Yes Status: Resolved (8) Suicidal ideation Current Visit: Yes Status: Acute Subjective Date of service: 04/14/20 Principal diagnosis: Chest pain Interval history: No chest pain or shortness of breath Objective Vital Signs Temp Pulse Resp BP Pulse Ox 04/14/20 10:05 71 119/68 04/14/20 10:04 16 04/14/20 07:42 98.2 F 66 18 132/69 97 04/14/20 03:33 98.1 F 64 18 111/56 96 04/13/20 23:22 98.2 F 69 16 150/73 100 04/13/20 23:00 66 04/13/20 22:00 18 04/13/20 21:45 66 20 140/86 04/13/20 19:35 98.1 F 66 14 140/86 100 04/13/20 16:42 97.9 F 63 18 111/65 99 04/13/20 11:43 98.6 F 68 18 102/58 96 04/13/20 11:00 60 - Physical Examination General: No Apparent Distress HEENT: Positive: PERRL, Mucus Membranes Moist Neck: Positive: neck supple, trachea midline, thyromegaly Cardiac: Positive: Reg Rate and Rhythm, Audible Murmur Lungs: Positive: clear to auscultation Neuro: Positive: Grossly Intact Abdomen: Positive: Soft, Active Bowel Sounds. Negative: Tender, Distended Skin: Positive: Clear Incision: Cardiac Cath Site Musculoskeletal: No Pain, Normal Range of Motion Extremities: Present: normal. Absent: edema - Imaging and Cardiology Echo: report reviewed (Normal LV function aortic valve sclerosis borderlines aortic stenosis. Has severe posterior leaflet calcification and severe mitral stenosis) - Telemetry EKG Rhythm: Sinus Rhythm (No significant arrhythmia)
[2020-04-14] MEDS: oxyCODONE 5 MG TAB PO PRN ×2 (16:31→22:56)
--- NOTE | 2020-04-14 18:06 | Progress Note ---
Assessment and Plan - Patient Problems (1) CHF (congestive heart failure) Current Visit: Yes Status: Acute Qualifiers: Heart failure type: diastolic Heart failure chronicity: acute Qualified Code(s): I50.31 - Acute diastolic (congestive) heart failure Plan to address problem: Strict I's/O, monitor urine output every shift, daily weight, afterload reduction, monitor fluid balance, cardiology team consulted, echo cardiogram reviewed (2) Obesity hypoventilation syndrome Current Visit: Yes Status: Resolved Plan to address problem: Supplemental oxygen, pulse oximetry, noninvasive positive pressure ventilation as clinically indicated, outpatient pulmonary follow-up for sleep study. (3) Suicidal ideation Current Visit: Yes Status: Acute Plan to address problem: Mental health team consulted, supportive care, continue medical management. 1013 rescinded as per psychiatry team. Recommend outpatient psychiatry follow- up. (4) ESRD (end stage renal disease) Current Visit: Yes Status: Acute Plan to address problem: Nephrology team consulted in ED, dialysis as per renal team, strict I's/O, avoid nephrotoxic agents. (5) Diabetes Current Visit: Yes Status: Chronic Qualifiers: Diabetes mellitus type: type 2 Diabetes mellitus technician terminal and repeater insulin use: w [facility] halfway use Plan to address problem: Sliding-scale insulin therapy, Accu-Chek, hypoglycemia protocol. (6) Hypertension Current Visit: Yes Status: Chronic Qualifiers: Hypertension type: essential hypertension Qualified Code(s): I10 - Essen tial (primary) hypertension Plan to address problem: Monitor blood pressure every shift, continue medical management. (7) Aortic stenosis Current Visit: Yes Status: Acute Qualifiers: Cardiac valve disease etiology: etiology unspecified Qualified Code(s): I35.0 - Nonrheumatic aortic (valve) stenosis Plan to address problem: Continue current care, patient pending cardiac cath. (8) Gastroesophageal reflux disease Current Visit: Yes Status: Acute Qualifiers: Esophagitis presence: without esophagitis Qualified Code(s): K21.9 - Gastro-esophageal reflux disease without esophagitis Plan to address problem: PPI therapy, supportive care. (9) DVT prophylaxis Current Visit: Yes Status: Acute Plan to address problem: SCD to bilateral lower extremities while in bed, patient is ambulatory. History Interval history: 60 YO Male HD #4 with Type 2 NSTEMI, Aortic Stenosis, Suicide Ideation 1013 rescinded by psychiatry team, HTN, CHF, GERD, DM, ESRD on HD(M,W,F), OA, Obesity Hypoventilation Syndrome. Patient is pending cardiac catheterization as per cardiology team. Patient states that he feels better compared to admission. No reported nursing events. Hospitalist Physical - Constitutional Vitals: Temp Pulse Resp BP Pulse Ox 98.1 F 63 18 105/62 99 04/14/20 16:58 04/14/20 16:58 04/14/20 16:58 04/14/20 16:58 04/14/20 16:58 General appearance: Present: no acute distress, well-nourished - EENT Eyes: Present: PERRL, EOM intact ENT: hearing intact - Neck Neck: Present: supple - Respiratory Respiratory effort: normal Respiratory: bilateral: CTA - Cardiovascular Rhythm: regular Heart Sounds: Present: S1 & S2 - Extremities Extremities: no ischemia Peripheral Pulses: within normal limits - Abdominal General gastrointestinal: soft, non-tender, non-distended - Integumentary Integumentary: Present: clear, dry - Psychiatric Psychiatric: cooperative - Neurologic Neurologic: CNII-XII intact HEART Score - HEART Score Troponin: Troponin T 0.114 ng/mL (0.00-0.029) H* 04/11/20 19:34 Results - Labs CBC & Chem 7: 04/10/20 22:48 04/10/20 22:48 Labs: Laboratory Last Values WBC 9.0 K/mm3 (4.5-11.0) 04/10/20 22:48 RBC 3.08 M/mm3 (3.65-5.03) L 04/10/20 22:48 Hgb 9.3 gm/dl (11.8-15.2) L 04/10/20 22:48 Hct 28.0 % (35.5-45.6) L 04/10/20 22:48 MCV 91 fl (84-94) 04/10/20 22:48 MCH 30 pg (28-32) 04/10/20 22:48 MCHC 33 % (32-34) 04/10/20 22:48 RDW 19.2 % (13.2-15.2) H 04/10/20 22:48 Plt Count 101 K/mm3 (140-440) L 04/10/20 22:48 Lymph % (Auto) Business Transformation Manager 04/10/20 22:48 Lymph # (Auto) Business Transformation Manager 04/10/20 22:48 Add Manual Diff Complete 04/10/20 22:48 Total Counted 100 04/10/20 22:48 Seg Neuts % (Manual) 50.0 % (40.0-70.0) 04/10/20 22:48 Lymphocytes % (Manual) 44.0 % (13.4-35.0) H 04/10/20 22:48 Monocytes % (Manual) 4.0 % (0.0-7.3) 04/10/20 22:48 Metamyelocytes % 2.0 % 04/10/20 22:48 Nucleated RBC % Not Reportable 04/10/20 22:48 Seg Neutrophils # Man 4.5 K/mm3 (1.8-7.7) 04/10/20 22:48 Band Neutrophils # 0.0 K/mm3 04/10/20 22:48 Lymphocytes # (Manual) 4.0 K/mm3 (1.2-5.4) 04/10/20 22:48 Abs React Lymphs (Man) 0.0 K/mm3 04/10/20 22:48 Monocytes # (Manual) 0.4 K/mm3 (0.0-0.8) 04/10/20 22:48 Eosinophils # (Manual) 0.0 K/mm3 (0.0-0.4) 04/10/20 22:48 Basophils # (Manual) 0.0 K/mm3 (0.0-0.1) 04/10/20 22:48 Metamyelocytes # 0.2 K/mm3 04/10/20 22:48 Myelocytes # 0.0 K/mm3 04/10/20 22:48 Promyelocytes # 0.0 K/mm3 04/10/20 22:48 Blast Cells # 0.0 K/mm3 04/10/20 22:48 WBC Morphology Not Reportable 04/10/20 22:48 Hypersegmented Neuts Not Reportable 04/10/20 22:48 Hyposegmented Neuts Not Reportable 04/10/20 22:48 Hypogranular Neuts Not Reportable 04/10/20 22:48 Smudge Cells Not Reportable 04/10/20 22:48 Toxic Granulation Not Reportable 04/10/20 22:48 Toxic Vacuolation Not Reportable 04/10/20 22:48 Dohle Bodies Not Reportable 04/10/20 22:48 Pelger-Huet Anomaly Not Reportable 04/10/20 22:48 Alex Rods Not Reportable 04/10/20 22:48 Platelet Estimate Consistent w auto 04/10/20 22:48 Clumped Platelets Not Reportable 04/10/20 22:48 Plt Clumps, EDTA Not Reportable 04/10/20 22:48 Large Platelets Not Reportable 04/10/20 22:48 Giant Platelets Not Reportable 04/10/20 22:48 Platelet Satelliting Not Reportable 04/10/20 22:48 Plt Morphology Comment Not Reportable 04/10/20 22:48 RBC Morphology Not Reportable 04/10/20 22:48 Dimorphic RBCs Not Reportable 04/10/20 22:48 Polychromasia Not Reportable 04/10/20 22:48 Hypochromasia Not Reportable 04/10/20 22:48 Poikilocytosis Not Reportable 04/10/20 22:48 Anisocytosis 1+ 04/10/20 22:48 Microcytosis Few 04/10/20 22:48 Macrocytosis Few 04/10/20 22:48 Spherocytes Not Reportable 04/10/20 22:48 Pappenheimer Bodies Not Reportable 04/10/20 22:48 Sickle Cells Not Reportable 04/10/20 22:48 Target Cells Not Reportable 04/10/20 22:48 Tear Drop Cells Not Reportable 04/10/20 22:48 Ovalocytes Few 04/10/20 22:48 Helmet Cells Not Reportable 04/10/20 22:48 Meredith-[place] Bodies Not Reportable 04/10/20 22:48 [place] Rings Not Reportable 04/10/20 22:48 Rudi Cells Not Reportable 04/10/20 22:48 Bite Cells Not Reportable 04/10/20 22:48 Crenated Cell Not Reportable 04/10/20 22:48 Elliptocytes Not Reportable 04/10/20 22:48 Acanthocytes (Spur) Not Reportable 04/10/20 22:48 Rouleaux Not Reportable 04/10/20 22:48 Hemoglobin C Crystals Not Reportable 04/10/20 22:48 Schistocytes Not Reportable 04/10/20 22:48 Malaria parasites Not Reportable 04/10/20 22:48 Jorge Bodies Not Reportable 04/10/20 22:48 Hem Pathologist Commnt No 04/10/20 22:48 D-Dimer 1489.25 ng/mlDDU (0-234) H 04/11/20 07:18 Sodium 135 mmol/L (137-145) L 04/10/20 22:48 Potassium 5.6 mmol/L (3.6-5.0) H 04/10/20 22:48 Chloride 96.9 mmol/L (98-107) L 04/10/20 22:48 Carbon Dioxide 24 mmol/L (22-30) 04/10/20 22:48 Anion Gap 20 mmol/L 04/10/20 22:48 BUN 49 mg/dL (9-20) H 04/10/20 22:48 Creatinine 7.3 mg/dL (0.8-1.3) H 04/10/20 22:48 Estimated GFR 8 ml/min 04/10/20 22:48 BUN/Creatinine Ratio 7 % 04/10/20 22:48 Glucose 91 mg/dL (75-100) 04/10/20 22:48 Calcium 8.8 mg/dL (8.4-10.2) 04/10/20 22:48 Troponin T 0.114 ng/mL (0.00-0.029) H* 04/11/20 19:34 Triglycerides 260 mg/dL (2-149) H 04/10/20 22:48 Cholesterol 151 mg/dL (50-199) 04/10/20 22:48 LDL Cholesterol Direct 90 mg/dL (50-130) 04/10/20 22:48 HDL Cholesterol 28 mg/dL (40-59) L 04/10/20 22:48 Cholesterol/HDL Ratio 5.39 % 04/10/20 22:48 Nasal Screen MRSA (PCR) Positive (Negative) 04/12/20 03:19 Urine Opiates Screen Negative 04/11/20 15:54 Urine Methadone Screen Negative 04/11/20 15:54 Ur Barbiturates Screen Negative 04/11/20 15:54 Ur Phencyclidine Scrn Negative 04/11/20 15:54 Ur Amphetamines Screen Negative 04/11/20 15:54 U Benzodiazepines Scrn Negative 04/11/20 15:54 Urine Cocaine Screen Negative 04/11/20 15:54 U Marijuana (THC) Screen Negative 04/11/20 15:54 Drugs of Abuse Note Disclamer 04/11/20 15:54 Hepatitis A IgM Ab Non-reactive (NonReactive) 04/12/20 18:52 Hep Bs Antigen Non-reactive (Negative) 04/12/20 18:52 Hep B Core IgM Ab Non-reactive (NonReactive) 04/12/20 18:52 Hepatitis C Antibody Non-reactive (NonReactive) 04/12/20 18:52 - Diagnostic Impressions Diagnostic Impressions: Echocardiogram 04/11/20 12:16 Transthoracic Echocardiogram Indication: Angina BP: 126/62 HR: 78 Conclusions *Global left ventricular systolic function is normal. *The estimated ejection fraction is 50-55%. *Abnormal left ventricular diastolic filling is observed, consistent with impaired relaxation. *The right ventricular global systolic function is normal. *Mild aortic leaflet calcification is visualized. *The mean gradient of the aortic valve is 12 mmHg. *The peak instantaneous gradient of the aortic valve is 28 mmHg. *Mitral valve posterior leaflet calcification is visualized. *Moderate mitral leaflet calcification is visualized. *There is trace of mitral regurgitation. *The mean gradient across the mitral valve is 12 mmHg. *There is severe mitral stenosis. *There is mild tricuspid regurgitation. *The right ventricular systolic pressure is calculated at 63 mmHg. *There is trace pulmonic regurgitation. Findings Left Ventricle: The left ventricular chamber size is normal. Moderate concentric left ventricular hypertrophy is observed. Global left ventricular wall motion and contractility are within normal limits. Global left ventricular systolic function is normal. The estimated ejection fraction is 50-55%. Abnormal left ventricular diastolic filling is observed, consistent with impaired relaxation. Right Ventricle: The right ventricular cavity size is normal. The right ventricular global systolic function is normal. Right Atrium: The right atrial cavity size is normal. Aortic Valve: Mild aortic leaflet calcification is visualized. There is mild aortic stenosis. The mean gradient of the aortic valve is 12 mmHg. The peak instantaneous gradient of the aortic valve is 28 mmHg. Mitral Valve: Moderate mitral leaflet calcification is visualized. Mitral valve posterior leaflet calcification is visualized. There is trace of mitral regurgitation. There is severe mitral stenosis. The mean gradient across the mitral valve is 12 mmHg. Tricuspid Valve: The tricuspid valve leaflets are normal. There is mild tricuspid regurgitation. The right ventricular systolic pressure is calculated at 63 mmHg. Pulmonic Valve: The pulmonic valve appears normal. There is trace pulmonic regurgitation. Pericardium: There is no pericardial effusion. Aorta: The aorta appears normal. Venous: The inferior vena cava appears normal. Measurements Chambers 2D Name Value Normal Range IVSd (2D) 1.47 cm (0.6 - 1.1) LVPWd (2D) 1.34 cm (0.6 - 1.1) LVIDd (2D) 4.54 cm (3.7 - 5.6) LVIDs (2D) 3.37 cm (2 - 3.8) LV FS (2D) 25.79 % - EF Teichholz (2D) 50.83 % - Ao root diameter (2D) 3.16 cm (2 - 3.7) Volumes/Mass Name Value Normal Range LA ESV SP 4CH (A/L) 86.02 ml - LA ESV SP 2CH (A/L) 65.12 ml - LA ESV BP (A/L) 77.58 ml - LA ESV BP (A/L) index 36.94 ml/m2 - LA ESV SP 4CH (MOD) 75.03 ml - LA ESV SP 2CH (MOD) 59.14 ml - LA ESV BP (MOD) 68.65 ml - LA ESV BP (MOD) index 32.69 ml/m2 - Diastolic/Systolic Function Name Value Normal Range MV E-wave Vmax 1.63 m/sec - MV deceleration time 400.08 msec - MV A-wave Vmax 2.27 m/sec - MV E:A ratio 0.72 ratio - Aortic Valve Name Value Normal Range AV Vmax 2.65 m/sec - AV VTI 42.93 cm - AV peak gradient 28 mmHg - AV mean gradient 12 mmHg - LVOT diameter 2.07 cm - LVOT Vmax 2.24 m/sec - LVOT VTI 33.38 cm - LVOT peak gradient 20.09 mmHg - LVOT mean gradient 9.62 mmHg - SV LVOT 112.09 ml - DONAVON (continuity Vmax) 2.84 cm2 - DONAVON (continuity VTI) 2.61 cm2 - AR PHT 440.86 msec - AR peak gradient 46.73 mmHg - Mitral Valve Name Value Normal Range MV Vmax 2.68 m/sec - MV VTI 74.83 cm - MV peak gradient 28.75 mmHg - MV mean gradient 12 mmHg - MVA (continuity VTI) 1.5 cm2 - Tricuspid Valve Name Value Normal Range TR Vmax 3.87 m/sec - TR peak gradient 60 mmHg - RAP 3 mmHg - RVSP 63 mmHg - Pulmonic Valve/Qp:Qs Name Value Normal Range PV Vmax 1.01 m/sec - PV peak gradient 4.1 mmHg - CA end-diastolic Vmax 1.79 m/sec - PV acceleration time 91.34 msec - Carlos/IV: Voiding Method Toilet IV Catheter Type [Right Wrist] Peripheral IV Active Medications - Current Medications Current Medications: Generic Name Dose Route Start Last Admin Trade Name Freq PRN Reason Stop Dose Admin Acetaminophen 650 mg 04/11/20 12:14 04/13/20 00:05 Acetaminophen 325 Mg Tab PO 650 mg Q4H PRN Administration Pain MILD(1-3)/Fever >100.5/PERERA Albuterol 2.5 mg 04/11/20 12:14 04/11/20 17:13 Albuterol 2.5 Mg/3 Ml Nebu IH 2.5 mg Q4HRT PRN Administration Shortness Of Breath Aspirin 325 mg 04/12/20 12:00 04/14/20 10:04 Aspirin 325 Mg Tab PO 325 mg QDAY JUAN Administration Atorvastatin Calcium 40 mg 04/11/20 22:00 04/13/20 21:44 Atorvastatin 40 Mg Tab PO 40 mg QHS JUAN Administration Carvedilol 12.5 mg 04/11/20 22:00 04/14/20 10:05 Carvedilol 12.5 Mg Tab PO 12.5 mg BID JUAN Administration Divalproex Sodium 125 mg 04/11/20 12:00 04/14/20 10:[address] 125 Mg Tab PO 125 mg BID JUAN Administration Fluoxetine HCl 20 mg 04/12/20 12:00 04/14/20 10:04 Fluoxetine 20 Mg Cap PO 20 mg QDAY JUAN Administration Sodium Chloride 100 mls @ 999 mls/hr 04/12/20 10:29 Nacl 0.9% IV LORE PRN Hypotension Sodium Chloride 500 mls @ 50 mls/hr 04/14/20 10:00 Nacl 0.9% 500 Ml IV 04/14/20 19:59 DIRECT JUAN Nitroglycerin 0.4 mg 04/11/20 12:14 Nitroglycerin 0.4 Mg Tab Subl SL Q5M PRN Chest Pain Ondansetron HCl 4 mg 04/11/20 12:14 04/11/20 17:12 Ondansetron 4 Mg/2 Ml Inj IV 4 mg Q8H PRN Administration Nausea And Vomiting Oxycodone HCl 2.5 mg 04/13/20 00:52 04/14/20 16:31 Oxycodone 5 Mg Tab PO 2.5 mg Q6H PRN Administration Pain, Moderate (4-6) Oxycodone/Acetaminophen 1 tab 04/13/20 00:51 04/14/20 16:28 Oxycodone /Acetaminophen 5-325mg Tab PO 1 tab Q6H PRN Administration Pain, Moderate (4-6) Sodium Chloride 10 ml 04/11/20 22:00 04/14/20 10:05 Sodium Chloride 0.9% 10 Ml Flush Syringe IV 10 ml BID JUAN Administration Sodium Chloride 10 ml 04/11/20 12:14 Sodium Chloride 0.9% 10 Ml Flush Syringe IV PRN PRN LINE FLUSH Sodium Chloride 10 ml 04/11/20 12:14 04/11/20 17:47 Sodium Chloride 0.9% 10 Ml Flush Syringe IV 10 ml PRN PRN Administration LINE FLUSH Trazodone HCl 50 mg 04/11/20 22:00 04/13/20 21:44 Trazodone 50 Mg Tab PO 50 mg QHS JUAN Administration Nutrition/Malnutrition Assess - Dietary Evaluation Nutrition/Malnutrition Findings: Nutrition Notes Start: 04/12/20 10:16 Freq: Status: Active Protocol: Document 04/12/20 10:16 LM (Rec: 04/12/20 10:17 LM [id number]) Nutrition Notes Need for Assessment generated from: x ray consultant Initial or Follow up Brief Note Current Diagnosis CKD (stage V CKD),Diabetes, Hypertension,Heart Failure Other Pertinent Diagnosis Suicidal ideations Current Diet Renal Subjective/Other Information RN screen for new DM. Pt is not newly dx with DM. Nutrition Intervention Revisit per MD consult or patient Sign Off request:
[2020-04-14] MEDS: traZODone 50 MG TAB PO SCH (22:55)
[2020-04-15] MEDS ORDERED: DEXTROSE 50% IN WATER (25GM) 50 ML SYRINGE IV ONE (05:31)
[2020-04-15 05:44] LABS: Hematocrit 20.7 % (35.5-45.6); Mean Corpuscular HGB Conc 34 % (32-34); Mean Corpuscular Volume 91 fl (84-94); Red Blood Count 2.28 M/mm3 (3.65-5.03); Red Cell Distribution Width 18.7 % (13.2-15.2)
[2020-04-15 05:52] LABS: Platelet Count 96 K/mm3 (140-440)
[2020-04-15 05:55] LABS: INR 1.01 (0.87-1.13)
[2020-04-15] MEDS: oxyCODONE /ACETAMINOPHEN 5-325MG TAB PO PRN (06:01)
[2020-04-15] MEDS: oxyCODONE 5 MG TAB PO PRN (06:01)
[2020-04-15 06:02] LABS: Calcium 8.4 mg/dL (8.4-10.2)
[2020-04-15] MEDS: DIVALPROEX DR 125 MG TAB PO SCH ×2 (10:44→23:34)
[2020-04-15] MEDS: ASPIRIN 325 MG TAB PO SCH (10:44)
[2020-04-15] MEDS: FLUoxetine 20 MG CAP PO SCH (10:44)
--- NOTE | 2020-04-15 11:14 | Progress Note ---
Assessment and Plan Assessment * End-stage renal disease on hemodialysis * Anemia of end-stage renal disease * Hyperkalemia, mild * NSTEMI II * Mitral stenosis, severe * Depression/suicidal ideation Recommendations * HD MWF * Cardiology note reviewed, [facility] today * Hold Epogen until acute issues have resolved * Psych note reviewed * Renally dose medications * Avoid nephrotoxins Subjective Date of service: 04/15/20 Principal diagnosis: Chest pain Interval history: resting well in bed today Objective - Exam Narrative Exam: Constitutional: no acute distress Head: NC/AT Neck: supple Lungs: clear to auscultation CV: RRR, no M/R/G Abdomen: soft, non-tender, bowel sounds present Back: nontender Extremities: no edema, pulses WNL Skin: intact Neuro: no focal deficits, alert and oriented x4 - Vital Signs Vital signs: Vital Signs - 12hr 04/15/20 04/15/20 04:00 08:00 Temperature 98.4 F 97.9 F Pulse Rate 60 61 Respiratory 16 18 Rate Blood Pressure 102/57 Blood Pressure 107/59 [Left] O2 Sat by Pulse 100 99 Oximetry - Lab 04/15/20 05:11 04/15/20 05:11 Most recent lab results Calcium 8.4 mg/dL (8.4-10.2) 04/15/20 05:11 Medications & Allergies - Medications Allergies/Adverse Reactions: Allergies buspirone [From BuSpar] Allergy (Verified 04/10/20 22:24) Itching Penicillins Allergy (Verified 04/10/20 22:14) Headache Home Medications: Home Medications Medication Instructions Recorded Confirmed Last Taken Type ALPRAZolam [Xanax TAB] 1 mg PO BID PRN 04/11/20 04/11/20 Unknown History Risperdal 1 mg PO BID 04/11/20 04/11/20 Unknown History carvediloL 10 mg PO BID 04/11/20 04/11/20 Unknown History FLUoxetine [PROzac] 20 mg PO QDAY #30 capsule 04/13/20 Unknown Rx Active Medications: Generic Name Dose Route Start Last Admin Trade Name Freq PRN Reason Stop Dose Admin Acetaminophen 650 mg 04/11/20 12:14 04/13/20 00:05 Acetaminophen 325 Mg Tab PO 650 mg Q4H PRN Administration Pain MILD(1-3)/Fever >100.5/PERERA Albuterol 2.5 mg 04/11/20 12:14 04/11/20 17:13 Albuterol 2.5 Mg/3 Ml Nebu IH 2.5 mg Q4HRT PRN Administration Shortness Of Breath Aspirin 325 mg 04/12/20 12:00 04/15/20 10:44 Aspirin 325 Mg Tab PO 325 mg QDAY JUAN Administration Atorvastatin Calcium 40 mg 04/11/20 22:00 04/14/20 22:57 Atorvastatin 40 Mg Tab PO 40 mg QHS JUAN Administration Carvedilol 12.5 mg 04/11/20 22:00 04/14/20 22:57 Carvedilol 12.5 Mg Tab PO 12.5 mg BID JUAN Administration Divalproex Sodium 125 mg 04/11/20 12:00 04/15/20 10:[address] 125 Mg Tab PO 125 mg BID JUAN Administration Fluoxetine HCl 20 mg 04/12/20 12:00 04/15/20 10:44 Fluoxetine 20 Mg Cap PO 20 mg QDAY JUAN Administration Sodium Chloride 100 mls @ 999 mls/hr 04/12/20 10:29 Nacl 0.9% IV LORE PRN Hypotension Nitroglycerin 0.4 mg 04/11/20 12:14 Nitroglycerin 0.4 Mg Tab Subl SL Q5M PRN Chest Pain Ondansetron HCl 4 mg 04/11/20 12:14 04/11/20 17:12 Ondansetron 4 Mg/2 Ml Inj IV 4 mg Q8H PRN Administration Nausea And Vomiting Oxycodone HCl 2.5 mg 04/13/20 00:52 04/15/20 06:01 Oxycodone 5 Mg Tab PO 2.5 mg Q6H PRN Administration Pain, Moderate (4-6) Oxycodone/Acetaminophen 1 tab 04/13/20 00:51 04/15/20 06:01 Oxycodone /Acetaminophen 5-325mg Tab PO 1 tab Q6H PRN Administration Pain, Moderate (4-6) Sodium Chloride 10 ml 04/11/20 22:00 04/15/20 10:44 Sodium Chloride 0.9% 10 Ml Flush Syringe IV 10 ml BID JUAN Administration Sodium Chloride 10 ml 04/11/20 12:14 Sodium Chloride 0.9% 10 Ml Flush Syringe IV PRN PRN LINE FLUSH Sodium Chloride 10 ml 04/11/20 12:14 04/11/20 17:47 Sodium Chloride 0.9% 10 Ml Flush Syringe IV 10 ml PRN PRN Administration LINE FLUSH Trazodone HCl 50 mg 04/11/20 22:00 04/14/20 22:55 Trazodone 50 Mg Tab PO 50 mg QHS JUAN Administration
--- NOTE | 2020-04-15 12:24 | Progress Note ---
Assessment and Plan 60-year-old male end-stage renal disease on hemodialysis hypertension has chest pain with a non-ST elevation type II. Patient chest pain is atypical in nature. But found on echocardiogram with normal function with severe mitral stenosis. Patient will continue aspirin statin beta-kasia therapy. RHC & LHC rescheduled for tomorrow due to hyperkalemia noted today. Pt to undergo HD today and f/u BMP in AM. Plan to proceed with RHC & LHC tomorrow pending hyperkalemia is improved. The patient has been seen in conjunction with Dr. Starr who agrees with the assessment and plan of care. - Patient Problems (1) NSTEMI (non-ST elevated myocardial infarction) Current Visit: Yes Status: Acute (2) Mitral stenosis Current Visit: Yes Status: Chronic Qualifiers: Cardiac valve disease etiology: nonrheumatic Qualified Code(s): I34.2 - Nonrheumatic mitral (valve) stenosis (3) Chest pain Current Visit: Yes Status: Acute Qualifiers: Chest pain type: unspecified Qualified Code(s): R07.9 - Chest pain, unsp ecified (4) Diabetes Current Visit: Yes Status: Chronic Qualifiers: Diabetes mellitus type: type 2 Diabetes mellitus nursing home insulin use: without technician terminal and repeater use (5) ESRD (end stage renal disease) Current Visit: Yes Status: Acute (6) Hypertension Current Visit: Yes Status: Chronic Qualifiers: Hypertension type: essential hypertension Qualified Code(s): I10 - Essential (primary) hypertension (7) Obesity hypoventilation syndrome Current Visit: Yes Status: Resolved (8) Suicidal ideation Current Visit: Yes Status: Acute Subjective Date of service: 04/15/20 Principal diagnosis: Chest pain Interval history: pt resting in bed, no current cardiac complaints. tele reviewed - in SR HR 60s. Objective Last Vital Signs Temp 97.9 F 04/15/20 08:00 Pulse 61 04/15/20 08:00 Resp 18 04/15/20 08:00 BP 102/57 04/15/20 08:00 Pulse Ox 99 04/15/20 08:00 - Physical Examination General: No Apparent Distress HEENT: Positive: PERRL, Mucus Membranes Moist Neck: Positive: neck supple, trachea midline, thyromegaly Cardiac: Positive: Reg Rate and Rhythm, S1/S2 Lungs: Positive: Decreased Breath Sounds Neuro: Positive: Grossly Intact Abdomen: Positive: Soft, Active Bowel Sounds. Negative: Tender, Distended Skin: Positive: Clear Incision: Cardiac Cath Site Musculoskeletal: No Pain, Normal Range of Motion Extremities: Present: normal. Absent: edema - Labs and Meds Coagulation 04/15/20 Range/Units 05:11 PT 13.2 (12.2-14.9) Sec. INR 1.01 (0.87-1.13) CBC 04/15/20 Range/Units 05:11 WBC 5.4 (4.5-11.0) K/mm3 RBC 2.28 L (3.65-5.03) M/mm3 Hgb 7.0 L (11.8-15.2) gm/dl Hct 20.7 L (35.5-45.6) % Plt Count 96 L (140-440) K/mm3 Comprehensive Metabolic Panel 04/15/20 Range/Units 05:11 Sodium 136 L (137-145) mmol/L Potassium 5.9 H (3.6-5.0) mmol/L Chloride 96.9 L (98-107) mmol/L Carbon Dioxide 20 L (22-30) mmol/L BUN 67 H (9-20) mg/dL Creatinine 9.9 H (0.8-1.3) mg/dL Glucose 82 (75-100) mg/dL Calcium 8.4 (8.4-10.2) mg/dL - Imaging and Cardiology Echo: report reviewed (Normal LV function aortic valve sclerosis borderlines aortic stenosis. Has severe posterior leaflet calcification and severe mitral stenosis)
[2020-04-15] MEDS: carvediloL 12.5 MG TAB PO SCH ×2 (13:02→23:33)
--- NOTE | 2020-04-15 15:27 | Event Note ---
Date: 04/15/20 Patient is known to me and followed by our service at the outpatient hemodialysis clinic. Will take over the service. Other team has been informed.
--- NOTE | 2020-04-15 20:21 | Progress Note ---
Assessment and Plan - Patient Problems (1) CHF (congestive heart failure) Current Visit: Yes Status: Acute Qualifiers: Heart failure type: diastolic Heart failure chronicity: acute Qualified Code(s): I50.31 - Acute diastolic (congestive) heart failure Plan to address problem: Strict I's/O, monitor urine output every shift, daily weight, afterload reduction, monitor fluid balance, cardiology team consulted, echo cardiogram reviewed (2) Obesity hypoventilation syndrome Current Visit: Yes Status: Resolved Plan to address problem: Supplemental oxygen, pulse oximetry, noninvasive positive pressure ventilation as clinically indicated, outpatient pulmonary follow-up for sleep study. (3) Suicidal ideation Current Visit: Yes Status: Acute Plan to address problem: Mental health team consulted, supportive care, continue medical management. 1013 rescinded as per psychiatry team. Recommend outpatient psychiatry follow- up. (4) ESRD (end stage renal disease) Current Visit: Yes Status: Acute Plan to address problem: Nephrology team consulted in ED, dialysis as per renal team, strict I's/O, avoid nephrotoxic agents. (5) Diabetes Current Visit: Yes Status: Chronic Qualifiers: Diabetes mellitus type: type 2 Diabetes mellitus manager terminal insulin use: w [facility] halfway use Plan to address problem: Sliding-scale insulin therapy, Accu-Chek, hypoglycemia protocol. (6) Hypertension Current Visit: Yes Status: Chronic Qualifiers: Hypertension type: essential hypertension Qualified Code(s): I10 - Essen tial (primary) hypertension Plan to address problem: Monitor blood pressure every shift, continue medical management. (7) Aortic stenosis Current Visit: Yes Status: Acute Qualifiers: Cardiac valve disease etiology: etiology unspecified Qualified Code(s): I35.0 - Nonrheumatic aortic (valve) stenosis Plan to address problem: Continue current care, patient pending cardiac cath. (8) Gastroesophageal reflux disease Current Visit: Yes Status: Acute Qualifiers: Esophagitis presence: without esophagitis Qualified Code(s): K21.9 - Gastro-esophageal reflux disease without esophagitis Plan to address problem: PPI therapy, supportive care. (9) DVT prophylaxis Current Visit: Yes Status: Acute Plan to address problem: SCD to bilateral lower extremities while in bed, patient is ambulatory. History Interval history: 60 YO Male HD #5 with Type 2 NSTEMI, Aortic Stenosis, Suicide Ideation 1013 rescinded by psychiatry team, HTN, CHF, GERD, DM, ESRD on HD(M,W,F), OA, Obesity Hypoventilation Syndrome. Patient is pending cardiac catheterization in am as per cardiology team. Patient states that he feels better compared to admission. Pt found to have hyperkalemia and is pending dialysis. Hospitalist Physical - Constitutional Vitals: Temp Pulse Resp BP Pulse Ox 98.0 F 52 L 18 138/84 99 04/15/20 14:25 04/15/20 17:10 04/15/20 14:25 04/15/20 17:10 04/15/20 11:35 General appearance: Present: no acute distress, well-nourished - EENT Eyes: Present: PERRL, EOM intact ENT: hearing intact - Neck Neck: Present: supple - Respiratory Respiratory: bilateral: CTA - Cardiovascular Rhythm: regular Heart Sounds: Present: S1 & S2 - Extremities Extremities: no ischemia Peripheral Pulses: within normal limits - Abdominal General gastrointestinal: soft, non-tender, non-distended - Integumentary Integumentary: Present: clear, dry - Psychiatric Psychiatric: cooperative - Neurologic Neurologic: CNII-XII intact HEART Score - HEART Score Troponin: Troponin T 0.114 ng/mL (0.00-0.029) H* 04/11/20 19:34 Results - Labs CBC & Chem 7: 04/15/20 05:11 04/15/20 05:11 Labs: Laboratory Last Values WBC 5.4 K/mm3 (4.5-11.0) 04/15/20 05:11 RBC 2.28 M/mm3 (3.65-5.03) L 04/15/20 05:11 Hgb 7.0 gm/dl (11.8-15.2) L 04/15/20 05:11 Hct 20.7 % (35.5-45.6) L 04/15/20 05:11 MCV 91 fl (84-94) 04/15/20 05:11 MCH 31 pg (28-32) 04/15/20 05:11 MCHC 34 % (32-34) 04/15/20 05:11 RDW 18.7 % (13.2-15.2) H 04/15/20 05:11 Plt Count 96 K/mm3 (140-440) L 04/15/20 05:11 Lymph % (Auto) Firmware Test Engineer 04/10/20 22:48 Lymph # (Auto) Firmware Test Engineer 04/10/20 22:48 Add Manual Diff Complete 04/10/20 22:48 Total Counted 100 04/10/20 22:48 Seg Neuts % (Manual) 50.0 % (40.0-70.0) 04/10/20 22:48 Lymphocytes % (Manual) 44.0 % (13.4-35.0) H 04/10/20 22:48 Monocytes % (Manual) 4.0 % (0.0-7.3) 04/10/20 22:48 Metamyelocytes % 2.0 % 04/10/20 22:48 Nucleated RBC % Not Reportable 04/10/20 22:48 Seg Neutrophils # Man 4.5 K/mm3 (1.8-7.7) 04/10/20 22:48 Band Neutrophils # 0.0 K/mm3 04/10/20 22:48 Lymphocytes # (Manual) 4.0 K/mm3 (1.2-5.4) 04/10/20 22:48 Abs React Lymphs (Man) 0.0 K/mm3 04/10/20 22:48 Monocytes # (Manual) 0.4 K/mm3 (0.0-0.8) 04/10/20 22:48 Eosinophils # (Manual) 0.0 K/mm3 (0.0-0.4) 04/10/20 22:48 Basophils # (Manual) 0.0 K/mm3 (0.0-0.1) 04/10/20 22:48 Metamyelocytes # 0.2 K/mm3 04/10/20 22:48 Myelocytes # 0.0 K/mm3 04/10/20 22:48 Promyelocytes # 0.0 K/mm3 04/10/20 22:48 Blast Cells # 0.0 K/mm3 04/10/20 22:48 WBC Morphology Not Reportable 04/10/20 22:48 Hypersegmented Neuts Not Reportable 04/10/20 22:48 Hyposegmented Neuts Not Reportable 04/10/20 22:48 Hypogranular Neuts Not Reportable 04/10/20 22:48 Smudge Cells Not Reportable 04/10/20 22:48 Toxic Granulation Not Reportable 04/10/20 22:48 Toxic Vacuolation Not Reportable 04/10/20 22:48 Dohle Bodies Not Reportable 04/10/20 22:48 Pelger-Huet Anomaly Not Reportable 04/10/20 22:48 Alex Rods Not Reportable 04/10/20 22:48 Platelet Estimate Consistent w auto 04/10/20 22:48 Clumped Platelets Not Reportable 04/10/20 22:48 Plt Clumps, EDTA Not Reportable 04/10/20 22:48 Large Platelets Not Reportable 04/10/20 22:48 Giant Platelets Not Reportable 04/10/20 22:48 Platelet Satelliting Not Reportable 04/10/20 22:48 Plt Morphology Comment Not Reportable 04/10/20 22:48 RBC Morphology Not Reportable 04/10/20 22:48 Dimorphic RBCs Not Reportable 04/10/20 22:48 Polychromasia Not Reportable 04/10/20 22:48 Hypochromasia Not Reportable 04/10/20 22:48 Poikilocytosis Not Reportable 04/10/20 22:48 Anisocytosis 1+ 04/10/20 22:48 Microcytosis Few 04/10/20 22:48 Macrocytosis Few 04/10/20 22:48 Spherocytes Not Reportable 04/10/20 22:48 Pappenheimer Bodies Not Reportable 04/10/20 22:48 Sickle Cells Not Reportable 04/10/20 22:48 Target Cells Not Reportable 04/10/20 22:48 Tear Drop Cells Not Reportable 04/10/20 22:48 Ovalocytes Few 04/10/20 22:48 Helmet Cells Not Reportable 04/10/20 22:48 M[place] Bodies Not Reportable 04/10/20 22:48 Yawkey Rings Not Reportable 04/10/20 22:48 Empire Cells Not Reportable 04/10/20 22:48 Bite Cells Not Reportable 04/10/20 22:48 Crenated Cell Not Reportable 04/10/20 22:48 Elliptocytes Not Reportable 04/10/20 22:48 Acanthocytes (Spur) Not Reportable 04/10/20 22:48 Rouleaux Not Reportable 04/10/20 22:48 Hemoglobin C Crystals Not Reportable 04/10/20 22:48 Schistocytes Not Reportable 04/10/20 22:48 Malaria parasites Not Reportable 04/10/20 22:48 Jorge Bodies Not Reportable 04/10/20 22:48 Hem Pathologist Commnt No 04/10/20 22:48 PT 13.2 Sec. (12.2-14.9) 04/15/20 05:11 INR 1.01 (0.87-1.13) 04/15/20 05:11 D-Dimer 1489.25 ng/mlDDU (0-234) H 04/11/20 07:18 Sodium 136 mmol/L (137-145) L 04/15/20 05:11 Potassium 5.9 mmol/L (3.6-5.0) H 04/15/20 05:11 Chloride 96.9 mmol/L (98-107) L 04/15/20 05:11 Carbon Dioxide 20 mmol/L (22-30) L 04/15/20 05:11 Anion Gap 25 mmol/L 04/15/20 05:11 BUN 67 mg/dL (9-20) H 04/15/20 05:11 Creatinine 9.9 mg/dL (0.8-1.3) H 04/15/20 05:11 Estimated GFR 5 ml/min 04/15/20 05:11 BUN/Creatinine Ratio 7 % 04/15/20 05:11 Glucose 82 mg/dL (75-100) 04/15/20 05:11 POC Glucose 75 mg/dL (70-105) 04/15/20 11:31 Calcium 8.4 mg/dL (8.4-10.2) 04/15/20 05:11 Troponin T 0.114 ng/mL (0.00-0.029) H* 04/11/20 19:34 Triglycerides 260 mg/dL (2-149) H 04/10/20 22:48 Cholesterol 151 mg/dL (50-199) 04/10/20 22:48 LDL Cholesterol Direct 90 mg/dL (50-130) 04/10/20 22:48 HDL Cholesterol 28 mg/dL (40-59) L 04/10/20 22:48 Cholesterol/HDL Ratio 5.39 % 04/10/20 22:48 Nasal Screen MRSA (PCR) Positive (Negative) 04/12/20 03:19 Urine Opiates Screen Negative 04/11/20 15:54 Urine Methadone Screen Negative 04/11/20 15:54 Ur Barbiturates Screen Negative 04/11/20 15:54 Ur Phencyclidine Scrn Negative 04/11/20 15:54 Ur Amphetamines Screen Negative 04/11/20 15:54 U Benzodiazepines Scrn Negative 04/11/20 15:54 Urine Cocaine Screen Negative 04/11/20 15:54 U Marijuana (THC) Screen Negative 04/11/20 15:54 Drugs of Abuse Note Disclamer 04/11/20 15:54 Hepatitis A IgM Ab Non-reactive (NonReactive) 04/12/20 18:52 Hep Bs Antigen Non-reactive (Negative) 04/12/20 18:52 Hep B Core IgM Ab Non-reactive (NonReactive) 04/12/20 18:52 Hepatitis C Antibody Non-reactive (NonReactive) 04/12/20 18:52 - Diagnostic Impressions Diagnostic Impressions: Echocardiogram 04/11/20 12:16 Transthoracic Echocardiogram Indication: Angina BP: 126/62 HR: 78 Conclusions *Global left ventricular systolic function is normal. *The estimated ejection fraction is 50-55%. *Abnormal left ventricular diastolic filling is observed, consistent with impaired relaxation. *The right ventricular global systolic function is normal. *Mild aortic leaflet calcification is visualized. *The mean gradient of the aortic valve is 12 mmHg. *The peak instantaneous gradient of the aortic valve is 28 mmHg. *Mitral valve posterior leaflet calcification is visualized. *Moderate mitral leaflet calcification is visualized. *There is trace of mitral regurgitation. *The mean gradient across the mitral valve is 12 mmHg. *There is severe mitral stenosis. *There is mild tricuspid regurgitation. *The right ventricular systolic pressure is calculated at 63 mmHg. *There is trace pulmonic regurgitation. Findings Left Ventricle: The left ventricular chamber size is normal. Moderate concentric left ventricular hypertrophy is observed. Global left ventricular wall motion and contractility are within normal limits. Global left ventricular systolic function is normal. The estimated ejection fraction is 50-55%. Abnormal left ventricular diastolic filling is observed, consistent with impaired relaxation. Right Ventricle: The right ventricular cavity size is normal. The right ventricular global systolic function is normal. Right Atrium: The right atrial cavity size is normal. Aortic Valve: Mild aortic leaflet calcification is visualized. There is mild aortic stenosis. The mean gradient of the aortic valve is 12 mmHg. The peak instantaneous gradient of the aortic valve is 28 mmHg. Mitral Valve: Moderate mitral leaflet calcification is visualized. Mitral valve posterior leaflet calcification is visualized. There is trace of mitral regurgitation. There is severe mitral stenosis. The mean gradient across the mitral valve is 12 mmHg. Tricuspid Valve: The tricuspid valve leaflets are normal. There is mild tricuspid regurgitation. The right ventricular systolic pressure is calculated at 63 mmHg. Pulmonic Valve: The pulmonic valve appears normal. There is trace pulmonic regurgitation. Pericardium: There is no pericardial effusion. Aorta: The aorta appears normal. Venous: The inferior vena cava appears normal. Measurements Chambers 2D Name Value Normal Range IVSd (2D) 1.47 cm (0.6 - 1.1) LVPWd (2D) 1.34 cm (0.6 - 1.1) LVIDd (2D) 4.54 cm (3.7 - 5.6) LVIDs (2D) 3.37 cm (2 - 3.8) LV FS (2D) 25.79 % - EF Teichholz (2D) 50.83 % - Ao root diameter (2D) 3.16 cm (2 - 3.7) Volumes/Mass Name Value Normal Range LA ESV SP 4CH (A/L) 86.02 ml - LA ESV SP 2CH (A/L) 65.12 ml - LA ESV BP (A/L) 77.58 ml - LA ESV BP (A/L) index 36.94 ml/m2 - LA ESV SP 4CH (MOD) 75.03 ml - LA ESV SP 2CH (MOD) 59.14 ml - LA ESV BP (MOD) 68.65 ml - LA ESV BP (MOD) index 32.69 ml/m2 - Diastolic/Systolic Function Name Value Normal Range MV E-wave Vmax 1.63 m/sec - MV deceleration time 400.08 msec - MV A-wave Vmax 2.27 m/sec - MV E:A ratio 0.72 ratio - Aortic Valve Name Value Normal Range AV Vmax 2.65 m/sec - AV VTI 42.93 cm - AV peak gradient 28 mmHg - AV mean gradient 12 mmHg - LVOT diameter 2.07 cm - LVOT Vmax 2.24 m/sec - LVOT VTI 33.38 cm - LVOT peak gradient 20.09 mmHg - LVOT mean gradient 9.62 mmHg - SV LVOT 112.09 ml - DONAVON (continuity Vmax) 2.84 cm2 - DONAVON (continuity VTI) 2.61 cm2 - AR PHT 440.86 msec - AR peak gradient 46.73 mmHg - Mitral Valve Name Value Normal Range MV Vmax 2.68 m/sec - MV VTI 74.83 cm - MV peak gradient 28.75 mmHg - MV mean gradient 12 mmHg - MVA (continuity VTI) 1.5 cm2 - Tricuspid Valve Name Value Normal Range TR Vmax 3.87 m/sec - TR peak gradient 60 mmHg - RAP 3 mmHg - RVSP 63 mmHg - Pulmonic Valve/Qp:Qs Name Value Normal Range PV Vmax 1.01 m/sec - PV peak gradient 4.1 mmHg - AL end-diastolic Vmax 1.79 m/sec - PV acceleration time 91.34 msec - Carlos/IV: Voiding Method Toilet IV Catheter Type [Right INT / Saline Lock Forearm] IV Catheter Type [Right Wrist] Peripheral IV Active Medications - Current Medications Current Medications: Generic Name Dose Route Start Last Admin Trade Name Freq PRN Reason Stop Dose Admin Acetaminophen 650 mg 04/11/20 12:14 04/13/20 00:05 Acetaminophen 325 Mg Tab PO 650 mg Q4H PRN Administration Pain MILD(1-3)/Fever >100.5/PERERA Albuterol 2.5 mg 04/11/20 12:14 04/11/20 17:13 Albuterol 2.5 Mg/3 Ml Nebu IH 2.5 mg Q4HRT PRN Administration Shortness Of Breath Aspirin 325 mg 04/12/20 12:00 04/15/20 10:44 Aspirin 325 Mg Tab PO 325 mg QDAY JUAN Administration Atorvastatin Calcium 40 mg 04/11/20 22:00 04/14/20 22:57 Atorvastatin 40 Mg Tab PO 40 mg QHS JUAN Administration Carvedilol 12.5 mg 04/11/20 22:00 04/15/20 13:02 Carvedilol 12.5 Mg Tab PO 12.5 mg BID JUAN Administration Divalproex Sodium 125 mg 04/11/20 12:00 04/15/20 10:[address] 125 Mg Tab PO 125 mg BID JUAN Administration Fluoxetine HCl 20 mg 04/12/20 12:00 04/15/20 10:44 Fluoxetine 20 Mg Cap PO 20 mg QDAY JUAN Administration Sodium Chloride 100 mls @ 999 mls/hr 04/12/20 10:29 Nacl 0.9% IV LORE PRN Hypotension Nitroglycerin 0.4 mg 04/11/20 12:14 Nitroglycerin 0.4 Mg Tab Subl SL Q5M PRN Chest Pain Ondansetron HCl 4 mg 04/11/20 12:14 04/11/20 17:12 Ondansetron 4 Mg/2 Ml Inj IV 4 mg Q8H PRN Administration Nausea And Vomiting Oxycodone HCl 2.5 mg 04/13/20 00:52 04/15/20 06:01 Oxycodone 5 Mg Tab PO 2.5 mg Q6H PRN Administration Pain, Moderate (4-6) Oxycodone/Acetaminophen 1 tab 04/13/20 00:51 04/15/20 06:01 Oxycodone /Acetaminophen 5-325mg Tab PO 1 tab Q6H PRN Administration Pain, Moderate (4-6) Sodium Chloride 10 ml 04/11/20 22:00 04/15/20 10:44 Sodium Chloride 0.9% 10 Ml Flush Syringe IV 10 ml BID JUAN Administration Sodium Chloride 10 ml 04/11/20 12:14 Sodium Chloride 0.9% 10 Ml Flush Syringe IV PRN PRN LINE FLUSH Sodium Chloride 10 ml 04/11/20 12:14 04/11/20 17:47 Sodium Chloride 0.9% 10 Ml Flush Syringe IV 10 ml PRN PRN Administration LINE FLUSH Trazodone HCl 50 mg 04/11/20 22:00 04/14/20 22:55 Trazodone 50 Mg Tab PO 50 mg QHS JUAN Administration Nutrition/Malnutrition Assess - Dietary Evaluation Nutrition/Malnutrition Findings: Nutrition Notes Start: 04/12/20 10:16 Freq: Status: Active Protocol: Document 04/12/20 10:16 LM (Rec: 04/12/20 10:17 LM [id number]) Nutrition Notes 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 Pt is not newly dx with DM. Nutrition Intervention Revisit per MD consult or patient Sign Off request:
[2020-04-15] MEDS: traZODone 50 MG TAB PO SCH (23:34)
[2020-04-16 06:02] LABS: Hematocrit 21.7 % (35.5-45.6); Hemoglobin 7.4 gm/dl (11.8-15.2); Mean Corpuscular HGB Conc 34 % (32-34); Mean Corpuscular Volume 90 fl (84-94); Platelet Count 118 K/mm3 (140-440); Red Blood Count 2.41 M/mm3 (3.65-5.03); Red Cell Distribution Width 18.7 % (13.2-15.2)
[2020-04-16 06:11] LABS: INR 0.91 (0.87-1.13)
[2020-04-16 06:18] LABS: Calcium 8.9 mg/dL (8.4-10.2)
[2020-04-16] MEDS: carvediloL 12.5 MG TAB PO SCH (09:04)
[2020-04-16] MEDS: ASPIRIN 325 MG TAB PO SCH (09:04)
[2020-04-16] MEDS: FLUoxetine 20 MG CAP PO SCH (09:04)
[2020-04-16] MEDS: DIVALPROEX DR 125 MG TAB PO SCH (09:04)
[2020-04-16] MEDS ORDERED: HEPARIN 10,000 UNITS/10 ML VIAL ONE (09:34)
[2020-04-16] MEDS ORDERED: HEPARIN/NS 5000 UNIT/500ML 500 ML IR ONE ×3 (09:34→10:19)
[2020-04-16] MEDS ORDERED: SODIUM CHLORIDE 0.9% 500 ML 500 ML ONE (09:35)
[2020-04-16] MEDS: fentaNYL 100 MCG/2 ML INJ ONE ×3 (10:17→10:42)
[2020-04-16] MEDS: MIDAZOLAM 2 MG/2 ML INJ ONE ×3 (10:18→10:42)
[2020-04-16] MEDS: LIDOCAINE (2%) 20 MG/1 ML VIAL 20 ML MDV INFILTRATI ONE ×2 (10:18→10:33)
--- NOTE | 2020-04-16 11:59 | Progress Note ---
Assessment and Plan S/p RHC & LHC today - normal coronary arteries, mild-mod MS. Currently stable cardiac status. Pt may discharge from cardiology standpoint f ollowing completion of post-cath order set. Recommend pt follow up in our office with Dr. Taveras within 2 weeks ([phone]). The patient has been seen in conjunction with Dr. Starr who agrees with the assessment and plan of care. - Patient Problems (1) NSTEMI (non-ST elevated myocardial infarction) Current Visit: Yes Status: Acute (2) Mitral stenosis Current Visit: Yes Status: Chronic Qualifiers: Cardiac valve disease etiology: nonrheumatic Qualified Code(s): I34.2 - Nonrheumatic mitral (valve) stenosis (3) Chest pain Current Visit: Yes Status: Resolved Qualifiers: Chest pain type: unspecified Qualified Code(s): R07.9 - Chest pain, unspecified (4) Diabetes Current Visit: Yes Status: Chronic Qualifiers: Diabetes mellitus type: type 2 Diabetes mellitus intermediate card tender insulin use: without intermediate card tender use (5) ESRD (end stage renal disease) Current Visit: Yes Status: Acute (6) Hypertension Current Visit: Yes Status: Chronic Qualifiers: Hypertension type: essential hypertension Qualified Code(s): I10 - Essential (primary) hypertension (7) Obesity hypoventilation syndrome Current Visit: Yes Status: Resolved (8) Suicidal ideation Current Visit: Yes Status: Acute Subjective Date of service: 04/16/20 Principal diagnosis: Chest pain Interval history: pt for RHC & LHC today, no current cardiac complaints. tele reviewed - in SR. Objective Last Vital Signs Temp 98.5 F 04/16/20 08:00 Pulse 66 04/16/20 08:00 Resp 18 04/16/20 08:00 BP 119/80 04/16/20 08:00 Pulse Ox 92 04/16/20 08:00 - Physical Examination General: No Apparent Distress HEENT: Positive: PERRL, Mucus Membranes Moist Neck: Positive: neck supple, trachea midline, thyromegaly Cardiac: Positive: Reg Rate and Rhythm, S1/S2 Lungs: Positive: Decreased Breath Sounds Neuro: Positive: Grossly Intact Abdomen: Positive: Soft, Active Bowel Sounds. Negative: Tender, Distended Skin: Positive: Clear Incision: Cardiac Cath Site Musculoskeletal: No Pain, Normal Range of Motion Extremities: Present: normal. Absent: edema - Labs and Meds Coagulation 04/16/20 Range/Units 05:43 PT 12.1 L (12.2-14.9) Sec. INR 0.91 (0.87-1.13) CBC 04/16/20 Range/Units 05:43 WBC 6.4 (4.5-11.0) K/mm3 RBC 2.41 L (3.65-5.03) M/mm3 Hgb 7.4 L (11.8-15.2) gm/dl Hct 21.7 L (35.5-45.6) % Plt Count 118 L (140-440) K/mm3 Comprehensive Metabolic Panel 04/16/20 Range/Units 05:43 Sodium 136 L (137-145) mmol/L Potassium 5.1 H (3.6-5.0) mmol/L Chloride 96.0 L (98-107) mmol/L Carbon Dioxide 27 D (22-30) mmol/L BUN 39 H (9-20) mg/dL Creatinine 6.4 H (0.8-1.3) mg/dL Glucose 81 (75-100) mg/dL Calcium 8.9 (8.4-10.2) mg/dL - Imaging and Cardiology Echo: report reviewed (Normal LV function aortic valve sclerosis borderlines aortic stenosis. Has severe posterior leaflet calcification and severe mitral stenosis)
[2020-04-16 12:35] VITALS: BP 126/33
[2020-04-16] MEDS ORDERED: HYDROcodone/ACETAMINOPHEN 5-325 MG TAB PO PRN (13:00)
[2020-04-16] MEDS ORDERED: traMADol 50 MG TAB PO PRN (13:00)
[2020-04-16] MEDS ORDERED: SODIUM POLYSTYRENE 15 GM/60 ML ORAL LIQD PO ONE (13:04)
--- NOTE | 2020-04-16 14:14 | Consultation ---
History of Present Illness - Reason for Consult Consult date: 04/16/20 end stage renal disease, hyperkalemia Past History Past Medical History: arthritis, diabetes, ESRD, GERD, hypertension Past Surgical History: Other (Permacath left chest) Social history: single, other (Smokes marijuana). denies: smoking, alcohol abuse, prescription drug abuse Family history: diabetes, hypertension Medications and Allergies Allergies Allergy/AdvReac Type Severity Reaction Status Date / Time buspirone [From BuSpar] Allergy Itching Verified 04/10/20 22:24 Penicillins Allergy Headache Verified 04/10/20 22:14 Home Medications Medication Instructions Recorded Confirmed Last Taken Type ALPRAZolam [Xanax TAB] 1 mg PO BID PRN 04/11/20 04/11/20 Unknown History Risperdal 1 mg PO BID 04/11/20 04/11/20 Unknown History carvediloL 10 mg PO BID 04/11/20 04/11/20 Unknown History FLUoxetine [PROzac] 20 mg PO QDAY #30 capsule 04/13/20 Unknown Rx Active Meds: Active Medications Acetaminophen (Acetaminophen 325 Mg Tab) 650 mg PO Q4H PRN PRN Reason: Pain MILD(1-3)/Fever >100.5/PERERA Last Admin: 04/13/20 00:05 Dose: 650 mg Documented by: Hydrocodone Bitart/Acetaminophen (Hydrocodone/Acetaminophen 5-325 Mg Tab) 1 each PO Q4H PRN PRN Reason: Pain, Moderate (4-6) Albuterol (Albuterol 2.5 Mg/3 Ml Nebu) 2.5 mg IH Q4HRT PRN PRN Reason: Shortness Of Breath Last Admin: 04/11/20 17:13 Dose: 2.5 mg Documented by: Aspirin (Aspirin 325 Mg Tab) 325 mg PO QDAY [facility] Last Admin: 04/16/20 09:04 Dose: 325 mg Documented by: Atorvastatin Calcium (Atorvastatin 40 Mg Tab) 40 mg PO QHS [facility] Last Admin: 04/15/20 23:34 Dose: 40 mg Documented by: Carvedilol (Carvedilol 12.5 Mg Tab) 12.5 mg PO BID [facility] Last Admin: 04/16/20 09:04 Dose: 12.5 mg Documented by: Divalproex Sodium (Divalproex Dr 125 Mg Tab) 125 mg PO BID [facility] Last Admin: 04/16/20 09:04 Dose: 125 mg Documented by: Fluoxetine HCl (Fluoxetine 20 Mg Cap) 20 mg PO QDAY [facility] Last Admin: 04/16/20 09:04 Dose: 20 mg Documented by: Sodium Chloride (Nacl 0.9%) 100 mls @ 999 mls/hr IV LORE PRN PRN Reason: Hypotension Nitroglycerin (Nitroglycerin 0.4 Mg Tab Subl) 0.4 mg SL Q5M PRN PRN Reason: Chest Pain Ondansetron HCl (Ondansetron 4 Mg/2 Ml Inj) 4 mg IV Q8H PRN PRN Reason: Nausea And Vomiting Last Admin: 04/11/20 17:12 Dose: 4 mg Documented by: Sodium Chloride (Sodium Chloride 0.9% 10 Ml Flush Syringe) 10 ml IV BID [facility] Last Admin: 04/16/20 09:06 Dose: 10 ml Documented by: Sodium Chloride (Sodium Chloride 0.9% 10 Ml Flush Syringe) 10 ml IV PRN PRN PRN Reason: LINE FLUSH Sodium Chloride (Sodium Chloride 0.9% 10 Ml Flush Syringe) 10 ml IV PRN PRN PRN Reason: LINE FLUSH Last Admin: 04/11/20 17:47 Dose: 10 ml Documented by: Tramadol HCl (Tramadol 50 Mg Tab) 50 mg PO Q4H PRN PRN Reason: Pain, Mild (1-3) Trazodone HCl (Trazodone 50 Mg Tab) 50 mg PO QHS [facility] Last Admin: 04/15/20 23:34 Dose: 50 mg Documented by: Exam - Vital Signs Vital signs: Vital Signs Temp Pulse Resp BP Pulse Ox 97.4 F L 76 18 119/53 100 04/10/20 22:14 04/10/20 22:14 04/10/20 22:14 04/10/20 22:14 04/10/20 22:14 Results - Lab Results 04/16/20 05:43 04/16/20 05:43 Most recent lab results Calcium 8.9 mg/dL (8.4-10.2) 04/16/20 05:43
--- NOTE | 2020-04-16 15:32 | Discharge Summary ---
Providers - Providers Date of Admission: 04/11/20 12:14 Date of discharge: 04/16/20 Attending physician: MATTHEW OLVERA 04/11/20 Consult to Cardiac Rehabilitation [CONS] Routine Reason For Exam: Phase I 04/11/20 12:15 Consult to Cardiology [CONS] Routine Consulting Provider: GARTH PLATT Reason For Exam: angina/ Diastolic CHF 04/16/20 12:36 Consult to Cardiac Rehabilitation [CONS] Routine Reason For Exam: Cardiac Rehab Evaluation Primary care physician: PSYCHOLOGY ASSOCIATE Hospitalization Condition: Fair Hospital course: History 60 YO Male on HD #5 with Type 2 NSTEMI, Aortic Stenosis, Suicide Ideation 1013 rescinded by psychiatry team, HTN, CHF, GERD, DM, ESRD on HD(M,W,F), OA, Obesity Hypoventilation Syndrome. Patient is pending cardiac catheterization in am as per cardiology team. Patient states that he feels better compared to admission. Patient had hemodialysis yesterday. Potassium level improved to 5.1. Patient had cardiac cath with right inguinal region and RHC and left LHC was normal. No critical stenosis. Cath notes on the chart. Assessment and Plan (1) Acute coronary syndrome Patient had cath today which was negative. - Patient Problems (2) Obesity hypoventilation syndrome Current Visit: Yes Status: Resolved Plan to address problem: Supplemental oxygen, pulse oximetry, noninvasive positive pressure ventilation as clinically indicated, outpatient pulmonary follow-up for sleep study. (3) Suicidal ideation Current Visit: Yes Status: Acute Plan to address problem: Mental health 7 present discharge (4) ESRD (end stage renal disease) Current Visit: Yes Status: Acute Plan to address problem: Patient has dialysis chair at [facility] will be going for dialysis on Wednesday and Saturdays at [address] De La Vega (5) CHF (congestive heart failure) Current Visit: Yes Status: Acute Qualifiers: Heart failure type: diastolic Heart failure chronicity: acute Qualified Code(s): I50.31 - Acute diastolic (congestive) heart failure Plan to address problem: Strict I's/O, monitor urine output every shift, daily weight, afterload reduction, monitor fluid balance, cardiology team consulted, echo cardiogram reviewed (6) Hypertension Current Visit: Yes Status: Chronic Qualifiers: Hypertension type: essential hypertension Qualified Code(s): I10 - Essential (primary) hypertension Plan to address problem: Monitor blood pressure every shift, continue medical management. (7) Aortic stenosis Current Visit: Yes Status: Acute Qualifiers: Cardiac valve disease etiology: etiology unspecified Qualified Code(s): I35.0 - Nonrheumatic aortic (valve) stenosis Plan to address problem: Follow-up with cardiology (8) Gastroesophageal reflux disease Current Visit: Yes Status: Acute Qualifiers: Esophagitis presence: without esophagitis Qualified Code(s): K21.9 - Gastro-esophageal reflux disease without esophagitis Plan to address problem: PPI therapy, supportive care. (9) Discharge planning issues tus: Acute Patient is alert and oriented Not suicidal Patient is going to [place] by cab He will be going to [facility] dialysis clinic which is [place] Disposition: DC-01 TO HOME OR SELFCARE Time spent for discharge: 25 minutes - Discharge Diagnoses (1) Aortic stenosis Status: Acute Qualifiers: Cardiac valve disease etiology: etiology unspecified Qualified Code(s): I35.0 - Nonrheumatic aortic (valve) stenosis (2) CHF (congestive heart failure) Status: Acute Qualifiers: Heart failure type: diastolic Heart failure chronicity: acute Qualified Code(s): I50.31 - Acute diastolic (congestive) heart failure (3) ESRD (end stage renal disease) Status: Acute Comment: Had hemodialysis (4) Hyperkalemia Status: Acute Comment: Resolved (5) NSTEMI (non-ST elevated myocardial infarction) Status: Acute (6) DVT prophylaxis Status: Acute Core Measure Documentation - Palliative Care Palliative Care/ Comfort Measures: Not Applicable - Core Measures Any of the following diagnoses?: history only Exam - Constitutional Vitals: Temp Pulse Resp BP Pulse Ox 98.5 F 64 18 126/33 98 04/16/20 08:00 04/16/20 11:46 04/16/20 11:46 04/16/20 11:46 04/16/20 11:46 General appearance: Present: no acute distress, well-nourished - EENT Eyes: Present: PERRL ENT: hearing intact, clear oral mucosa - Neck Neck: Present: supple, normal ROM - Respiratory Respiratory effort: normal Respiratory: bilateral: CTA - Cardiovascular Heart rate: 78 Rhythm: regular Heart Sounds: Present: S1 & S2. Absent: rub, click - Extremities Extremities: pulses symmetrical, No edema Peripheral Pulses: within normal limits - Abdominal General gastrointestinal: Present: soft, non-tender, non-distended, normal bowel sounds Male genitourinary: Present: normal - Integumentary Integumentary: Present: clear, warm, dry - Musculoskeletal Musculoskeletal: gait normal, strength equal bilaterally - Psychiatric Psychiatric: appropriate mood/affect, intact judgment & insight - Neurologic Neurologic: CNII-XII intact, moves all extremities Plan Activity: no restrictions Diet: renal Follow up with: PRIMARY CAREMD [Primary Care Provider] - 3-5 Days BOB GRIFFIN MD [Staff Physician] - 7 Days MANPREET DE LA VEGA MD [Staff Physician] - 7 Days Prescriptions: FLUoxetine [PROzac] 20 mg PO QDAY #30 capsule
== END 2020-04-16 18:47 | disposition home or self-care (01) | DRG 280 ==
LOC: ED 21:59 → 4A 04-11 12:14
PROVIDERS: ADMIT Internal Medicine; ATTEND Internal Medicine
PROC: 5A1D70Z Performance of Urinary Filtration, Intermittent, Less than 6 Hours Per Day (ICD-10-PCS; principal; 2020-04-12)
PROC: 5A1D70Z Performance of Urinary Filtration, Intermittent, Less than 6 Hours Per Day (ICD-10-PCS; 2020-04-15)
PROC: 4A023N8 Measurement of Cardiac Sampling and Pressure, Bilateral, Percutaneous Approach (ICD-10-PCS; 2020-04-16)
PROC: B2111ZZ Fluoroscopy of Multiple Coronary Arteries using Low Osmolar Contrast (ICD-10-PCS; 2020-04-16)
PROC: B2161ZZ Fluoroscopy of Right and Left Heart using Low Osmolar Contrast (ICD-10-PCS; 2020-04-16)
DX: I13.2 Hypertensive heart and chronic kidney disease with heart failure and with stage 5 chronic kidney disease, or end stage renal disease (principal); I21.A1 Myocardial infarction type 2; N18.6 End stage renal disease; I50.41 Acute combined systolic (congestive) and diastolic (congestive) heart failure; R45.851 Suicidal ideations; E66.2 Morbid (severe) obesity with alveolar hypoventilation; I24.9 Acute ischemic heart disease, unspecified; K21.9 Gastro-esophageal reflux disease without esophagitis; I34.2 Nonrheumatic mitral (valve) stenosis; E11.22 Type 2 diabetes mellitus with diabetic chronic kidney disease; Z99.2 Dependence on renal dialysis; M17.0 Bilateral primary osteoarthritis of knee; F32.9 Major depressive disorder, single episode, unspecified; F41.9 Anxiety disorder, unspecified; F17.200 Nicotine dependence, unspecified, uncomplicated; Z68.33 Body mass index [BMI] 33.0-33.9, adult; Z88.0 Allergy status to penicillin; Z88.8 Allergy status to other drugs, medicaments and biological substances; E87.5 Hyperkalemia; D63.1 Anemia in chronic kidney disease; I35.0 Nonrheumatic aortic (valve) stenosis
CPT/HCPCS: 36415; 70450; 71045; 71046; 78580; 80048; 80061; 80074; 80307; 82962; 84484; 85007; 85025; 85027; 85379; 85610; 87641; 90471; 93005; 93306; 93460; 96372; G0378; A9270-GY; A9540; C1894; J0610; J1170; J1644; J1815; J2250; J2405; J3010; J7040; Q9967